=== PATIENT | female | born 1995 | race Caucasian/White ===

== ENCOUNTER → 2017-05-26 12:04 | Outpatient (CLI) | payer MEDICAID, SELFPAY | PROVIDERS: Family Provider Family Medicine; PCP Family Medicine; Visit Provider Family Medicine | DX: Z53.9 Procedure and treatment not carried out, unspecified reason (principal) ==

== ENCOUNTER → 2024-04-12 | Outpatient (CLI) | payer MEDICAID, SELFPAY | END | disposition home or self-care (01) | PROVIDERS: PCP Internal Medicine; Referring Provider Physician Assistant Surgical; Visit Provider Physician Assistant Surgical | DX: R30.0 Dysuria (principal) | CPT/HCPCS: 87077; 87086; 87088; 87186 ==

== ENCOUNTER 2024-11-13 00:28 | Emergency (ER) | payer MEDICAID, SELFPAY ==
[2024-11-13 00:30] VITALS: BP 151/91; PULSE 127; RESP 16; TEMP 38.1; O2SAT 97; BMI 35.7
[2024-11-13 00:32] VITALS: BP 151/91; PULSE 128; RESP 16; TEMP 38.1; O2SAT 96
--- NOTE | 2024-11-13 00:48 | EDS_ITS ---
HPI HPI - URI History of Present Illness Chief Complaint: Cold Sx Informant: patient Narrative Narrative: 29-year-old female states for the past 2 or 3 days she has had headaches, sore throat, some nasal congestion body aches just not feeling well. No cough or dyspnea. Some occasional nausea no vomiting or abdominal pain or diarrhea. No known sick contacts no travel out of the area or the country. She did a home COVID test but it was negative and she is not sure that she trusts it. ROS ROS ED Constitutional Constitutional ED: Reports body ache(s), fever(s) and malaise; Denies chills Eyes Eyes: Denies change in vision or diplopia ENT ENT ED: Reports nasal congestion and sore throat; Denies ear pain or rhinorrhea Cardiovascular Cardiovascular: Denies chest pain or palpitations Respiratory/Chest Respiratory/Chest: Denies cough or dyspnea Gastrointestinal Gastrointestinal: Reports nausea; Denies abdominal pain, diarrhea or vomiting Genitourinary Genitourinary ED: Denies dysuria or hematuria Musculoskeletal Musculoskeletal: Denies back pain or neck pain Integumentary Denies abscess or rash Neurologic Neurologic: Reports headache(s); Denies paresthesias or weakness Psychiatric Psychiatric: Denies anxiety or suicidal thoughts PFSH PFSH Medical History Bilateral lower extremity edema Morbid obesity Hypothyroidism Home Medications ?Medication ?Instructions ?Recorded ?Last Taken ?Type levothyroxine 100 mcg capsule PO 03/31/17 Unknown Hist ory ibuprofen 600 mg tablet 600 mg PO TID PRN fever or p ain 04/19/17 Unknown Rx #30 tabs Allergy/AdvReac Type Severity Reaction Status Date / Time No Known Allergies Allergy Verified 11/13/24 00:33 Family History Grandmother Diabetes Grandfather Heart disease Diabetes Social History Smoking Status: Never smoker alcohol intake: never substance use type: does not use what type of physical activity do you participate in: none EXAM Physical Exam Const Vital Signs: 11/13/24 00:30 11/13/24 00:32 Temperature 100.5 F H 100.5 F H Temperature Source Oral Oral Pulse Rate 127 H 128 H Respiratory Rate 16 16 Blood Pressure 151/91 H 151/91 H Blood Pressure Mean 111 111 Pulse Ox 97 96 Oxygen Delivery Method Room Air Room Air Positive well nourished, well developed and obese General Appearance ED: well developed and NAD Nutritional Appearance: obese HEENT Reports moist mucous membranes normocephalic and atraumatic Eyes PERRL and EOMs intact bilaterally Neck full ROM, no lymphadenopathy, supple and no meningeal signs Resp normal respiratory effort and clear to auscultation bilaterally Cardio regular rate, regular rhythm and no murmurs GI non-tender and non-distended Auscultation: normoactive bowel sounds Palpation: soft Back/Spine no CVA tenderness General Back: other FROM Extremity normal to inspection General Extremety ED: Negative for edema, pulses abnormal or tenderness General Extremity: Negative for edema or pulses abnormal Neuro oriented x3, CN's II-XII intact bilaterally and no sensory deficits noted Sensorium / Orientation: awake and alert Motor Exam: strength 5/5 throughout Skin no rashes or lesions noted and no wounds MDM MDM MDM Narrative Medical decision making narrative: Patient's COVID swab is positive for COVID. We treated her low-grade fever with ibuprofen. Her vital signs are otherwise unremarkable except for some tachycardia likely related to the fever. She is not dyspneic, her lungs are clear, pulse ox 97% on room air. Supportive care advised given appropriate discharge instructions. Discharge Plan Triage Chief Complaint: Cold Sx Other Complaint: Nausea/Vomiting ED Provider: Conner Nicholas Dx/Rx/DC Orders Clinical Impression: Upper respiratory tract infection due to COVID-19 virus Instructions: Coronavirus Disease 2019 (COVID-19): Caring for Yourself or Others Prescriptions: No Action levothyroxine 100 mcg capsule PO ibuprofen 600 mg tablet 600 mg PO TID PRN (Reason: fever or pain) Qty: 30 0RF Rx Instructions: take with food Primary Care Provider: Jarret Castellano Referrals: Froylan Fischer MD [Med Staff - Active Staff] - As Needed Activity Restrictions/Additional Instructions: Try to get a home portable pulse oximeter and closely watch your oxygen levels periodically. If you stay below 90% for more than a minute or so, and/or you are feeling like your breathing is getting worse, return to the emergency department for further evaluation. Currently, CDC recommendations state that you should stay home through day 5 of symptoms, then as long as symptoms are improving, if you need to go to work or somewhere else you may for days 6-10 as long as you are wearing a mask the entire time. If you are feeling better after day 10 you may resume life is normal. Print Language: [place] Disposition Disposition: Home, Self Care
--- OUTSIDE RECORDS SUMMARY | 2024-11-13 00:59 | XMS RPT_ITS | CCD ---
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 [employer] General Supervisor Name Role Phone Daniel Diaz Unavailable Unavailable Self Referral, Patient Unavailable Unavailab XAVIER Genao MD Admitting Unavailable XAVIER LOCKWOOD MD Primary Care Unavailable XAVIER LOCKWOOD MD Attending Unavailable TRES JACQUES MD Consulting Unavailable TRES JACQUES MD Referring Unavailable PROVIDER, UNKNOWN Consulting Unavailable PROVIDER, UNKNOWN Consulting Unavailable PROVIDER, UNKNOWN Consulting Unavailable TIFFANIE, DR KUSH Castellanos Admitting Unavailable TIFFANIE, DR KUSH Castellanos Primary Care Unavailable TIFFANIE, DR KUSH Castellanos Attending Unavailable TRES JACQUES MD Consulting Unavailable TRES JACQUES MD Referring Unavailable PROVIDER, UNKNOWN Consulting Unavailable PROVIDER, UNKNOWN Consulting Unavailable PROVIDER, UNKNOWN Consulting Unavailable DAI LEMUS MD Admitting Unavailable DAI LEMUS MD Primary Care Unavailable DAI LEMUS MD Attending Unavailable TRES JACQUES MD Consulting Unavailable PROVIDER, UNKNOWN Consulting Unavailable PROVIDER, UNKNOWN Consulting Unavailable PROVIDER, UNKNOWN Consulting Unavailable LISA TROY Attending Unavail able NO, PHYSICIAN Primary Care Unavailable Daniel Diaz Attending Unavailable No, Physician Unavailable Unavailable Debi VANESSA, Maritza Sheth Primary Care Provide r Nadya Mendez CNP Unavailable [phone] Denisse Lan CNP Unavailable [phone] Radha PIERCE, Mimi Justin Unavailable Unav ailable ANNETTE CARRERAO TYSHAWN Referring Unavail able DEBI, MARITZA TYSHAWN Primary Care Unavail able JOHNY PHAN Attending Unavailable DEBI, MARITZA TYSHAWN Primary Care Unavail able MAURIZIO CABALLERO Attending Unavailab le DEBI, MARITZA TYSHAWN Primary Care Unavail able ACE KESSLER Attending Unavailable DEBI, MARITZA TYSHAWN Primary Care Unavail able MARITZA CARRERA Attending Unavail able LEONARDOICARDSergio, MARITZA HARDENSTE Primary Care Unavail able LEONARDOICARDSergio, MARITZA HARDENSTE Attending Unavail able LEONARDOICARDSergio, MARITZA TYSHAWN Primary Care Unavail able LEONARDOICARDSergio, MARITZA TYSHAWN Primary Care Unavail able MARITZA CARRERA Attending Unavail able PHYSICIAN, NONE Primary Care Physician Unavailab Nazia VANESSA, MARITZA Mclean Primary Care Physician [phone] RL LEYVA Attending Unavailable PHYSICIAN, NONE Primary Care Unavailable MARLEN PERES DO Attending Unavailab acevedo PHYSICIAN, NONE Primary Care Unavailable MARLEN PERES DO Attending Unavailab acevedo PHYSICIAN, NONE Primary Care Unavailable DEBI VANESSA, MARITZA Mclean Primary Care Unavailab MARLEN Augustine DO Attending Unavailab Paulina VANESSA, Dr. Galeano Primary Care Provider Dr. Froylan Fischer MD Referring Provider Jos Cordova Attending Provider Oleghe, Efewongbe Referring Unavailable Chadd Hawley Attending Unavailable Oleghe, Efewongbe Primary Care Unavailable Oleghe, Efewongbe Referring Unavailable Oleghe, Efewongbe Primary Care Unavailable Chadd Hawley Attending Unavailable Oleghe, Efewongbe Primary Care Unavailable Chadd Hawley Attending Unavailable Chadd Hawley Referring Unavailable Oleghe, Efewongbe Primary Care Unavailable Chadd Hawley Attending Unavailable Oleghe, Efewongbe Referring Unavailable Oleghe, Efewongbe Primary Care Unavailable Jso Cordova Attending Unavailable Oleghe, Efewongbe Referring Unavailable Oleghe, Efewongbe Referring Unavailable Chadd Hawley Attending Unavailable Oleghe, Efewongbe Primary Care Unavailable Allergies Allergy Classification Reported Allergen(s) Allergy Type Date of Onset Reaction(s) Facility (1 source) No Known Medication Allergies; Translations: [No Known Medication Allergies] Propensity to adverse reactions to drug (disorder) [facility] Repository Medications Current Medications Medication Drug Class(es) Dates Sig (Normalized) Sig (Original) amLODIPine 5 mg / benazepril hydrochloride 10 mg oral capsule (1 source) Dihydropyridine Calcium Channel Molly, Angiotensin Converting Enzyme Inhibitor Start: 12-23-19 End: 06-19-19 take 1 capsule by mouth once daily amLODIPine-benazepril (LOTREL) 5-10 mg per capsule Indications: Essential (primary) hypertension Take 1 (one) capsule by mouth daily . 90 capsule 1 12/23/2023 06/18/2024 Discontinued (Side effects) Ethinyl Estradiol / norgestimate (3 sources) Progestin, Estrogen Start: 06-01-19 End: 05-31-19 24 take 1 tablet by mouth once daily norgestimate-ethinyl estradioL (Sprintec, 28,) 0.25-35 mg-mcg per tablet Take 1 (one) tablet by mouth daily . 30 tablet 11 05/31/2022 05/31/2023 Active hydroCHLOROthiazide 25 mg oral tablet (5 sources) Thiazide Diuretic Start: 10-07-19 End: 12-16-19 hydroCHLOROthiazide 25 mg oral tablet Dose : 25 mg = 1 tab(s), Oral, qDay, 0 Refill(s) Start Date: 09/06/24 Status: Ordered Repeat number: 1 ibuprofen 600 mg oral tablet (1 source) Nonsteroidal Anti-inflammatory Drug Start: 04-19-19 take 1 tablet by mouth three times daily at mealtime for pain Ibuprofen 600 mg tablet Active 600 mg PO THREE TIMES A DAY as needed for fever or pain 30 April 19, 2017 1:00am take with food levothyroxine sodium 0.1 mg oral capsule (2 sources) l-Thyroxine Start: 03-31-19 End: 03-31-19 18 Levothyroxine 100 mcg capsule Active PO March 31, 2017 1:00am ondansetron 4 mg disintegrating oral tablet (3 sources) Serotonin-3 Receptor Antagonist Start: 06-20-19 take 1 tablet by mouth every eight hours as needed for nausea ondansetron (ZOFRAN-ODT) 4 MG disintegrating tablet Dissolve 1 (one) tablet (4 mg total) on top of tongue every 8 (eight) hours as needed for nausea . 20 tablet 0 06/19/2022 Active progesterone 200 mg oral capsule (1 source) Progesterone Start: 09-07-19 progesterone 200 mg oral capsule Dose : 200 mg = 1 cap(s), Oral, qDay Start Date: 09/06/24 Status: Ordered Repeat number: 1 Completed/Discontinued Medications Medication Drug Class(es) Dates Sig (Normalized) Sig (Original) cephalexin 500 mg oral capsule (1 source) Cephalosporin Antibacterial Start: 04-13-2023 End: 10-07-2023 take 1 capsule by mouth twice daily cephALEXin (KEFLEX) 500 MG capsule Take 1 (one) capsule (500 mg total) by mouth 2 (two) times a day . 10 capsule 04/13/2023 10/07/2023 Discontinued (Therapy completed) escitalopram 10 mg oral tablet (4 sources) Serotonin Reuptake Inhibitor Start: 08-13-2022 End: 10-07-2023 take 1 tablet by mouth once daily escitalopram oxalate (LEXAPRO) 10 MG tablet Indications: Generalized anxiety disorder Take 1 (one) tablet (10 mg total) by mouth daily . 30 tablet 1 08/13/2022 10/07/2023 Discontinued (Therapy completed) Ethinyl Estradiol / Norethindrone (1 source) Estrogen Start: 03-23-2023 End: 10-07-2023 take 1 tablet by mouth once daily norethindrone ac-eth estradioL (Loestrin 1.5/30, 21,) 1.5-30 mg-mcg Tab Take 1 (one) tablet by mouth daily . 28 tablet 5 03/23/2023 10/07/2023 Discontinued (Therapy completed) ketorolac tromethamine 10 mg oral tablet (2 sources) Nonsteroidal Anti-inflammatory Drug, Cyclooxygenase Inhibitor Start: 08-29-2023 End: 10-07-2023 take 1 tablet by mouth three times daily as needed for pain ketorolac (TORADOL) 10 mg tablet Take 1 (one) tablet (10 mg total) by mouth 3 (three) times a day as needed for pain . 15 tablet 08/29/2023 10/07/2023 Discontinued (Therapy completed) Start: 05-19-2022 take 1 tablet by angela th three times daily as needed for pain ketorolac (TORADOL) 10 mg tablet Take 1 (one) tablet (10 mg total) by mouth 3 (three) times a day as needed for pain . 15 tablet 0 05/19/2022 Active meclizine hydrochloride 25 mg oral tablet (1 source) Antiemetic Start: 08-29-2023 End: 10-07-2023 take 1 tablet by mouth three times daily as needed for nausea meclizine (ANTIVERT) 25 mg tablet Take 1 (one) tablet (25 mg total) by mouth 3 (three) times a day as needed for nausea . 30 tablet 08/29/2023 10/07/2023 Discontinued (Therapy completed) 1 ml medroxyPROGESTERone acetate 150 mg/ml injection (4 sources) Progestin Start: 07-05-2022 End: 10-07-2023 medroxyPROGESTERone (DEPO-PROVERA) 150 mg/mL injection Indications: control counseling Inject 1 mL (150 mg total) into the shoulder, thigh, or buttocks every 3 (three) months . 1 mL 3 07/05/2022 10/07/2023 Discontinued (Therapy completed) nitrofurantoin, macrocrystals 25 mg / nitrofurantoin, monohydrate 75 mg oral capsule (1 source) Nitrofuran Antibacterial Start: 04-12-2024 End: 04-19-2024 take 1 capsule by mouth every twelve hours at mealtime Nitrofurantoin Monohyd/M-Cryst 100 mg capsule Discontinued 1 NMA PO Q12H 14 7 0 April 12, 2024 1:00am April 18, 2024 1:00am April 19, 2024 1:09am administer with a meal/food; swallow whole; do not open, crush, dissolve , or chew Problems Active Problems Problem Classification Problem Date Documented Da te Episodic/Chronic Anxiety disorders (5 sources) Generalized anxiety disorder; Translations: [Generalized anxiety disorder] Onset: 09-10-2022 09-10-2022 Chronic Chronic obstructive pulmonary disease and bronchiectasis (2 sources) Bronchitis, not specified as acute or chronic; Translations: [Bronchitis, not specified as acute or chronic] Onset: 03-14-2022 Episodic Deficiency and other anemia (1 source) Iron deficiency anemia due to blood loss; Translations: [Iron deficiency anemia secondary to blood loss (chronic)] 10-07-2023 Chronic Deficiency and other anemia (4 sources) Iron deficiency anemia secondary to blood loss (chronic); Translations: [Iron deficiency anemia secondary to blood loss (chronic)] Onset: 10-07-2023 Chronic Essential hypertension (7 sources) Essential hypertension; Translations: [Essential (primary) hypertension] Onset: 04-01-2017 10-07-2023 Chronic Headache; including migraine (2 sources) Headache; including migraine; Translations: [Headache, unspecified] Onset: 08-29-2023 Mood disorders (3 sources) Major depressive disorder, recurrent, moderate; Translations: [Major depressive disorder, recurrent, moderate] Onset: 12-25-2021 Chronic Other circulatory disease (2 sources) Elevated blood-pressure reading, without diagnosis of hypertension; Translations: [Elevated blood-pressure reading, without diagnosis of hypertension] Onset: 03-14-2022 Episodic Other endocrine disorders (3 sources) Polycystic ovary syndrome; Translations: [Polycystic ovarian syndrome] Onset: 09-15-2018 12-14-2022 Chronic Other female genital disorders (1 source) Abnormal uterine bleeding; Translations: [Abnormal uterine and vaginal bleeding, unspecified] 10-07-2023 Chronic Other female genital disorders (2 sources) Abnormal uterine and vaginal bleeding, unspecified; Translations: [Abnormal uterine and vaginal bleeding, unspecified] Onset: 10-07-2023 Chronic Other nutritional; endocrine; and metabolic disorders (2 sources) Body mass index 40+ - severely obese; Translations: [Morbid (severe) obesity due to excess calories] Onset: 12-23-2023 12-23-2023 Chronic Other nutritional; endocrine; and metabolic disorders (2 sources) Morbid (severe) obesity due to excess calories; Translations: [Morbid (severe) obesity due to excess calories] Onset: 12-23-2023 Chronic Other nutritional; endocrine; and metabolic disorders (1 source) Morbid obesity; Translations: [Morbid (severe) obesity due to excess calories] 03-31-2017 Chronic Other upper respiratory infections (1 source) Acute pharyngitis, unspecified; Translations: [Acute pharyngitis, unspecified] Onset: 10-29-2024 Episodic Residual codes; unclassified (1 source) Bilateral lower limb edema; Translations: [Localized edema] 03-31-2017 Episodic Sprains and strains (2 sources) Sprain of ligaments of lumbar spine, initial encounter; Translations: [Sprain of ligaments of lumbar spine, initial encounter] Onset: 04-26-2024 Episodic Thyroid disorders (1 source) Hypothyroidism; Translations: [Hypothyroidism, unspecified] 03-31-2017 Chronic Unclassified (1 source) Contact with and (suspected) exposure to covid-19; Translations: [Contact with and (suspected) exposure to covid-19] Onset: 03-14-2022 Viral infection (2 sources) Viral infection, unspecified; Translations: [Viral infection, unspecified] Onset: 03-14-2022 Episodic Past or Other Problems Problem Classification Problem Date Documented Date Episodic/Chronic Abdominal pain (3 sources) Indigestion; Translations: [Epigastric pain] Onset: 10-07-2023 10-07-2023 Episodic Allergic reactions (8 sources) Environmental allergy; Translations: [Other allergy status, other than to drugs and biological substances] Onset: 05-29-2022 Episodic Conditions associated with dizziness or vertigo (2 sources) Dizziness and giddiness; Translations: [Dizziness and giddiness] Onset: 08-29-2023 Episodic Genitourinary symptoms and ill-defined conditions (1 source) Dysuria; Translations: [Dysuria] Onset: 05-07-2024 Episodic Mood disorders (4 sources) Mood disorders Onset: 06-18-2024 06-18-2024 Pneumonia (except that caused by tuberculosis or sexually transmitted disease) (4 sources) Pneumonia, unspecified organism; Translations: [Pneumonia, unspecified organism] Onset: 12-19-2023 Episodic Unclassified (1 source) Contact with and (suspected) exposure to covid-19; Translations: [Contact with and (suspected) exposure to covid-19] Onset: 03-14-2022 Urinary tract infections (1 source) Urinary tract infection, site not specified; Translations: [Urinary tract infection, site not specified] Onset: 04-19-2024 Episodic Results Test Name Value Interpretation Reference Range Facility Urgent Care Visit Reporton 0 10-29-2024 Urgent Care Visit Report [facility] [address], [address] [place], [place] [address] OFFICE VISIT Date of Service: 10/29/24 MR#: [id number] Acct: [id number] Name: RACHAEL POPE Rep #: [id number] : 1995 Provider: RINA Edwards Age/Sex: 29/F Location: [facility] [place] [place] Status: Signed Intake Vital Signs 04/19/17 15:32 10/29/24 08:23 Height 5 ft 6 in 5 ft 6 in Weight: 333 lb BMI 53.7 BP 122/76 H Position Sitting Respiration 18 Pulse 95 Temp 99.8 F H Temp Source Oral Pulse Oximetry (%) 98 Oxygen Delivery Method room air Intake Visit Reasons: SORE THROAT, EAR PAIN Chief Complaint: sore throat, ear pain Accompanied by: Daughter Allergies No Known Allergies Allergy (Verified 10/29/24 08:17) Medications ???Medication ???Instructions ???Recorded ???Confirmed ???Type levothyroxine 100 mcg capsule PO 03/31/17 10/29/24 History ibuprofen 600 mg tablet 600 mg PO TID PRN fever or pain 10/29/24 Rx #30 tabs Nurse's Note: Patient has a ST and bilateral ear pain. Patient states this has been going on for 4 days. Patient states it was just her right ear now its both. PFSH Medical History (Updated 03/31/17 @ 10:06 by Pavithra Yanez) Bilateral lower extremity edema Morbid obesity Hypothyroidism Family History (Updated 03/31/17 @ 10:07 by Pavithra Yanez) Grandmother Diabetes Grandfather Heart disease Diabetes Social History (Updated 04/19/17 @ 18:56 by Ace Butcher NP, [employer]ACHINE OPERATOR-C) Smoking Status: Never smoker alcohol intake: never substance use type: does not use what type of physical activity do you participate in: none HPI HPI Chief Complaint: sore throat, ear pain Details: RACHAEL POPE, is a 29 F who presents to the office today for initial evaluation at the [facility] for approximately 4-day history of persistent sore throat with swollen tender cervical lymph nodes in front of neck, no cough, no fever, developed bilateral ear pressure. Painful swallowing appreciated though no difficulty swallowing/drooling. No rash. No complaints of chest pressure/shortness of breath/dyspnea on exertion. No close contacts with similar complaints. ???No [id number] products taken to assist. No other associated symptoms and no other alleviating/aggravati ng factors. ROS Const Constitutional: No other (As above) Exam Const General: cooperative, healthy appearing and no acute distress Orientation: alert, awake HENMT Head: normal to inspection Ears: hearing grossly normal bilaterally, external ears normal, TM's normal bilaterally and EAC's normal Nose: external nose normal, nares normal, septum normal and no nasal discharge Face and sinus: normal facial exam, sinuses nontender and face symmetric Mouth: oral mucosae normal, lip normal, tongue normal and oropharynx normal Throat: posterior oropharynx normal, uvula midline, abnormal tonsil bilaterally trace erythema w/ no exudates and no hypertrophy, and no postnasal drainage Eyes General: appearance normal, both eyes and all related structures Neck Neck: normal visual inspection, full ROM, no meningeal signs, supple and lymphadenopathy (Bilateral anterior cervical lymph node swelling/tender to palpation) Neck mass: No Thyroid: thyroid normal Chest Chest palpation inspection: normal inspection of the chest Resp Effort Inspection: normal respiratory effort and able to speak in complete sentences Auscultation: Bilateral: Clear to Auscultation Cardio Palpation: normal PMI Rate: regular rate Rhythm: regular rhythm Heart Sounds: S1 normal, S2 normal, no gallops, no murmurs and no rubs Pulses: radial pulses present Skin General: no rashes or lesions noted Neuro General: patient alert, patient awake and patient oriented x3 Cognition: normal cognition Speech: speech normal Psych Appearance: grossly normal Mental Status: mental status grossly normal Mood: congruent mood Affect: normal affect Speech and Movement: speech and movement normal Attitude: cooperative Diagnoses Acute pharyngitis J02.9 Assessment and Plan Assessment and Plan (1) Acute pharyngitis: Status: Acute Plan: See POC results. Supportive measures as instructed today. Work excuse offered/declined. Follow-up with PCP in 3 to 5 days should symptoms not improve, sooner should symptoms worsen or any other concerns develop. Patient states acknowledging understanding all the above. Results POC Rapid Strep A Office Rapid Strep A Negative Last Edit by Grecia Pitts MA on 10/29/24 08:23 Coding Level of Care Code Off vis,est,level 2 Assessment and Plan Assessment and Plan Orders: Orders POC Rapid Strep A Today J02.9 - Acute pharyngitis, unspecified 10/29/24 0856 Date Darion (more content not included)... Normal [facility] .Auto Diffon 07-30-2024 Basophil, Absolute 0.1 10 3/mcL Normal 0.0-0.3 [facility] Comment on above: Performed By: #### A CHASE, FT4, ADIFF, FT3, CBC, TSH #### [address] [address] Basophils/100 WBC (Bld) 0.6 % Normal 0.0-2.5 [facility] Comment on above: Performed By: #### A CHASE, FT4, ADIFF, FT3, CBC, TSH #### [address] [address] Eosinophil, Absolute 0.3 10 3/mcL Normal 0.0-0.7 [facility] Comment on above: Performed By: #### A CHASE, FT4, ADIFF, FT3, CBC, TSH #### [address] [address] Eosinophils/100 WBC (Bld) 2.4 % Normal 0.0-6.0 [facility] Comment on above: Performed By: #### A CHASE, FT4, ADIFF, FT3, CBC, TSH #### [address] [address] Lymphocyte, Absolute 2.8 10 3/mcL Normal 0.9-4.3 [facility] Comment on above: Performed By: #### A CHASE, FT4, ADIFF, FT3, CBC, TSH #### [address] [address] Lymphocytes/100 WBC (Bld) 24.1 % Normal 20.0-40.0 [facility] Comment on above: Performed By: #### A CHASE, FT4, ADIFF, FT3, CBC, TSH #### [address] [address] Monocyte, Absolute 0.8 10 3/mcL Normal 0.1-1.4 [facility] Comment on above: Performed By: #### A CHASE, FT4, ADIFF, FT3, CBC, TSH #### [address] [address] Monocytes/100 WBC (Bld) 6.9 % Normal 2.0-13.0 [facility] Comment on above: Performed By: #### A CHASE, FT4, ADIFF, FT3, CBC, TSH #### [place] [address] Neutrophils/100 WBC (Bld) 66.0 % Normal 50.0-75.0 [facility] Comment on above: Performed By: #### A CHASE, FT4, ADIFF, FT3, CBC, TSH #### [place] [address] .NEUABSon 07-30-2024 Neutrophil, Absolute 7.8 10 3/mcL Normal 2.3-8.1 [facility] Comment on above: Performed By: #### A CHASE, FT4, ADIFF, FT3, CBC, TSH #### [place] [address] CBCon 07-30-2024 Erythrocyte distribution width (RBC) [Ratio] 14.4 % Normal 11.5-15.5 [facility] Comment on above: Performed By: #### A CHASE, FT4, ADIFF, FT3, CBC, TSH #### [place] [address] Hematocrit (Bld) [Volume fraction] 39.0 % Normal 34.0-46.0 [facility] Comment on above: Performed By: #### A CHASE, FT4, ADIFF, FT3, CBC, TSH #### [place] [address] Hgb 12.8 G/dL Normal 12.0-16.0 [facility] Comment on above: Performed By: #### A CHASE, FT4, ADIFF, FT3, CBC, TSH #### [place] [address] MCH (RBC) [Entitic mass] 25.1 pg Low 27.0-33.0 [facility] Comment on above: Performed By: #### A CHASE, FT4, ADIFF, FT3, CBC, TSH #### [address] [address] MCHC 32.9 G/dL Normal 32.0-36.0 [facility] Comment on above: Performed By: #### A CHASE, FT4, ADIFF, FT3, CBC, TSH #### [address] [address] MCV (RBC) [Entitic vol] 76.5 fL Low 80.0-99.0 [facility] Comment on above: Performed By: #### A CHASE, FT4, ADIFF, FT3, CBC, TSH #### [address] [address] Platelet 294 10 3/mcL Normal 150-450 [facility] Comment on above: Performed By: #### A CHASE, FT4, ADIFF, FT3, CBC, TSH #### [address] [address] Platelet mean volume (Bld) [Entitic vol] 8.7 fL Normal 6.6-10.5 [facility] Comment on above: Performed By: #### A CHASE, FT4, ADIFF, FT3, CBC, TSH #### [address] [address] RBC 5.10 10 6/mcL Normal 4.10-5.30 [facility] Comment on above: Performed By: #### A CHASE, FT4, ADIFF, FT3, CBC, TSH #### [address] [address] WBC 11.8 10 3/mcL High 4.5-10.8 [facility] Comment on above: Performed By: #### A CHASE, FT4, ADIFF, FT3, CBC, TSH #### [address] [address] FT3on 07-30-2024 Free T3 [Mass/Vol] 3.76 pg/mL Normal 2.30-4.00 [facility] Comment on above: Performed By: #### A CHASE, FT4, ADIFF, FT3, CBC, TSH #### [address] [place] [id number] [place], [place] [address] FT4on 07-30-2024 Free T4 [Mass/Vol] 1.11 ng/dL Normal 0.76-1.46 [facility] Comment on above: Performed By: #### A CHASE, FT4, ADIFF, FT3, CBC, TSH #### [address] [place] [id number] [place], [place] [address] LABORATORYOrdered By: SYSTEM SYSTEM on 07-30-2024 Basophils (Bld) [#/Vol] 0.1 103/mcL Normal 0.0 - 0.3 10^3/mcL AO Workflow SS Basophils/100 WBC (Bld) 0.6 % Normal 0.0 - 2.5 % AO Workflow SS Eosinophil, Absolute 0.3 103/mcL Normal 0.0 - 0 .7 10^3/mcL AO Workflow SS Eosinophils/100 WBC (Bld) 2.4 % Normal 0.0 - 6.0 % AO Workflow SS Erythrocyte distribution width (RBC) [Ratio] 14.4 % Normal 11.5 - 15.5 % AO Workflow SS Free T3 [Mass/Vol] 3.76 pg/mL Normal 2.30 - 4. 00 pg/mL AO ADM SS Free T4 [Mass/Vol] 1.11 ng/dL Normal 0.76 - 1. 46 ng/dL AO ADM SS Hematocrit (Bld) [Volume fraction] 39.0 % Normal 34.0 - 46.0 % AO Workflow SS Hemoglobin (Bld) [Mass/Vol] 12.8 G/dL Normal 12.0 - 16.0 G/dL AO Workflow SS Lymphocytes (Bld) [#/Vol] 2.8 103/mcL Normal 0.9 - 4.3 10^3/mcL AO Workflow SS Lymphocytes/100 WBC (Bld) 24.1 % Normal 20.0 - 40.0 % AO Workflow SS MCH (RBC) [Entitic mass] 25.1 pg Low 27.0 - 33.0 pg AO Workflow SS MCHC 32.9 G/dL Normal 32.0 - 36.0 G/dL AO Workflow SS MCV (RBC) [Entitic vol] 76.5 fL Low 80.0 - 99.0 fL AO Workflow SS Monocytes (Bld) [#/Vol] 0.8 103/mcL Normal 0.1 - 1.4 10^3/mcL AO Workflow SS Monocytes/100 WBC (Bld) 6.9 % Normal 2.0 - 13.0 % AO Workflow SS Neutrophils (Bld) [#/Vol] 7.8 103/mcL Normal 2.3 - 8.1 10^3/mcL AO Workflow SS Neutrophils/100 WBC (Bld) 66.0 % Normal 50.0 - 75.0 % AO Workflow SS Platelet mean volume (Bld) [Entitic vol] 8.7 fL Normal 6.6 - 10.5 fL AO Workflow SS Platelets (Bld) [#/Vol] 294 103/mcL Normal 150 - 450 10^3/mcL AO Workflow SS RBC (Bld) [#/Vol] 5.10 106/mcL Normal 4.10 - 5.3 0 10^6/mcL AO Workflow SS TSH Qn 5.75 m[IU]/L High 0.36 - 3.74 mcIU/mL AO ADM SS WBC (Bld) [#/Vol] 11.8 103/mcL High 4.5 - 10.8 10^3/mcL AO Workflow SS TSHon 07-30-2024 TSH Qn 5.75 m[IU]/L High 0.36-3.74 [facility] Comment on above: Performed By: #### A CHASE, FT4, ADIFF, FT3, CBC, TSH #### [address] [address] [place] PELVIS NON-OB W/TRANSVAGI NALon 07-10-2024 US PELVIS NON-OB W/TRANSVAGINAL ORIGINAL EXAMINATION: TRANSVAGINAL PELVIC ULTRASOUND 07/10/2024 TECHNIQUE: Transvaginal pelvic ultrasound was performed. COMPARISON: None HISTORY: ORDERING SYSTEM PROVIDED HISTORY: Reason for Exam: PELVIC AND PERINEAL PAIN All images are recorded and archived. FINDINGS: Measurements: Uterus: 7.3 x 4.3 x 4.7 cm Endometrial stripe: 5.0 mm Right Ovary:3.0 x 3.0 x 1.8 cm Left Ovary: 2.8 x 2.3 x 2.7 cm Ultrasound Findings: Uterus: Uterus demonstrates normal myometrial echotexture. Endometrial stripe: Endometrial stripe is within normal limits. Right Ovary: Right ovary is within normal limits. Left Ovary: Left ovary is within normal limits. Free Fluid: No evidence of free fluid. IMPRESSION: Unremarkable pelvic ultrasound. Interpreted by: Fernandez Reed DO Preliminary Report By: Fernandez Reed DO Electronically signed By Fernandez Reed DO Dictated Date: 07/10/2024 8:52:34 AM Prelim Date: 07/10/2024 8:55:59 AM Sign Date: 07/10/2024 8:55:59 AM Ordering Provider: RL LEYVA [facility] BASIC METABOLIC PANEL WITH A TRICE ARAUJOon 06-19-2024 BUN/CREATININE RATIO SEE NOTE: Normal - [facility] Comment on above: Order Comment: FASTI NG:YES FASTING: YES Result Comment: Not Reported: BUN and Creatinine are within reference range. Performed By: #### [id number] #### [facility] [address], [address] [place] [address] Manager Product Design: Maverick Gomez MD Calcium [Mass/Vol] 9.2 mg/dL Normal 8.6-10.2 [facility] Comment on above: Order Comment: FASTI NG:YES FASTING: YES Performed By: #### [id number] #### [facility] [place] [address] Manager Product Design: Maverick Gomez MD Chloride [Moles/Vol] 104 mmol/L Normal 98-110 [facility] Comment on above: Order Comment: FASTI NG:YES FASTING: YES Performed By: #### 9 [id number] #### [facility] [place] [address] Manager Product Design: Maverick Gomez MD CO2 [Moles/Vol] 23 mmol/L Normal 20-32 [facility] Comment on above: Order Comment: FASTI NG:YES FASTING: YES Performed By: #### 9 [id number] #### [facility] [place] [address] Manager Product Design: Maverick Gomez MD Creatinine [Mass/Vol] 0.64 mg/dL Normal 0.50-0.[address] [facility] Comment on above: Order Comment: FASTI NG:YES FASTING: YES Performed By: #### 9 2098 #### [facility] [place] [address] Manager Product Design: Maverick Gomez MD ELECTROLYTE BALANCE 12 mmol/L (calc) Normal 7-17 [facility] Comment on above: Order Comment: FASTI NG:YES FASTING: YES Performed By: #### 9 2008 #### [facility] [place] [address] Manager Product Design: Maverick Gomez MD GFR/1.73 sq M.predicted among non-blacks MDRD (S/P/Bld) [Vol rate/Area] 123 mL/min/{1.73_m2} Normal > OR = 60 [facility] Comment on above: Order Comment: FASTI NG:YES FASTING: YES Performed By: #### 9 0518 #### [facility] [place] [address] Manager Product Design: Maverick Gomez MD Glucose [Mass/Vol] 98 mg/dL Normal 65-99 [facility] Comment on above: Order Comment: FASTI NG:YES FASTING: YES Result Comment: Fasting reference interval Performed By: #### 9 [id number] #### [facility] [place] [address] Manager Product Design: Maverick Gomez MD Potassium [Moles/Vol] 3.9 mmol/L Normal 3.5-5.3 [facility] Comment on above: Order Comment: FASTI NG:YES FASTING: YES Performed By: #### 9 6438 #### [facility] [place] [address] Manager Product Design: Maverick Gomez MD Sodium [Moles/Vol] 139 mmol/L Normal 135-146 [facility] Comment on above: Order Comment: FASTI NG:YES FASTING: YES Performed By: #### 9 5844 #### [facility] [place] [address] Manager Product Design: Maverick Gomez MD Urea nitrogen [Mass/Vol] 12 mg/dL Normal 7-25 [facility] Comment on above: Order Comment: FASTI NG:YES FASTING: YES Performed By: #### 9 2498 #### [facility] [address] [facility], [address] [place] [address] Manager Product Design: Maverick Gomez MD CT LUMBAR SPINE WITHOUT CONT Ursula 04-26-2024 CT LUMBAR SPINE WITHOUT CONTRAST EXAMINATION: CT LUMBAR SPINE WITHOUT CONTRAST HISTORY: ORDERING SYSTEM PROVIDED HISTORY: Compression fracture, lumbar, TECHNOLOGIST PROVIDED HISTORY: Injury/Trauma Reason for exam: Compression fracture, lumbar Encounter Type: Initial Mechanism of injury: fall ORDERING SYSTEM PROVIDED DIAGNOSIS CODES: COMPARISON: None TECHNIQUE: CT examination of the lumbar spine without IV contrast. Coronal and sagittal reformations were performed. Dose reduction techniques were achieved by using automated exposure control and/or adjustment of mA and/or kV according to patient size and/or use of iterative reconstruction technique. FINDINGS: 5 rnp-wqx-hlmpogz lumbar vertebrae. Normal lumbar lordosis without listhesis. The vertebral body heights are maintained. No acute displaced fracture is evident. Mild multilevel degenerative disease and facet arthropathy is present throughout the lumbar spine. Broad-based disc bulge/posterior disc osteophyte complex at the L1-L2 level results in mild spinal canal stenosis. Broad-based disc bulge at the L3-L4 level with posterior disc osteophyte complex results in ermu-of-jpbmeogy spinal canal stenosis. No focal large central disc herniation or severe spinal canal stenosis. Abpi-qi-kpxxnzve bilateral neural foraminal stenosis is present throughout the lumbar spine, most significant involving the left L5-S1 foramen. The bony pelvis appears congruent with mild joint space narrowing of the sacroiliac joints. Limited evaluation of the abdominopelvic viscera is without acute or suspicious abnormality. IMPRESSION: Degenerative changes without acute osseous abnormality. Workstation ID: [id number] Dictated by: KATY COURTNEY on TueApr 26, 2024 1:46:45 PM EST Transcribed by: KATY COURTNEY on TueApr 26, 2024 1:46:45 PM EST Finalized by: KATY COURTNEY on TueApr 26, 2024 1:46:45 PM EST [facility] Comment on above: Order Comment: [facility] has implemented the eGFR calculation approach that does not have a coefficient for race that conforms to the NKF-ASN Task Force Recommendations. ED Prov Noteon 04-26-2024 ED Prov Note ED PROVIDER NOTE [facility] EMERGENCY DEPARTMENT NAME: Rachael Pope AGE: 28 y.o. : 1995 VISIT DATE: 04/26/2024 CSN: [id number] PCP: Maritza Carrera MD Chief Complaint Patient presents with Back Pain Chief complaint back pain History of present illness a 28-year-old female slipped forward and developed lumbosacral pain a couple days ago and then today slipped and fell but did not impact the lower back but has discomfort there. Denies any loss of bowel or bladder function or urinary fecal incontinence or constipation or retention or any numbness or tingling in the legs or any foot drop. She is here with blood pressure 190/100 pulse 98 respiratory rate 18 temp 98 pulse ox 1% Past Medical History: Diagnosis Date Anxiety Depression History reviewed. No pertinent surgical history. Family History Problem Relation Age of Onset No Known Problems Mother Alcohol abuse Father COPD Father Diabetes Maternal Grandmother Diabetes Paternal Grandmother Social History Socioeconomic History Marital status: Tobacco Use Smoking status: Every Day Types: Cigarettes Smokeless tobacco: Never Vaping Use Vaping status: Every Day Substances: Nicotine Devices: Pre-filled or refillable cartridge Substance and Sexual Activity Alcohol use: Not Currently Comment: occasional Drug use: Not Currently Sexual activity: Yes Partners: Male Social Drivers of Health Financial Resource Strain: Low Risk (09/28/2023) Overall Financial Resource Strain (CARDIA) Difficulty of Paying Living Expenses: Not very hard Food Insecurity: No Food Insecurity (09/28/2023) Hunger Vital Sign Worried About Running Out of Food in the Last Year: Never true Ran Out of Food in the Last Year: Never true Transportation Needs: No Transportation Needs (09/28/2023) PRAPARE - Transportation Lack of Transportation (Medical): No Lack of Transportation (Non-Medical): No Previous Medications Medication Sig amLODIPine-benazepril (LOTREL) 5-10 mg per capsule Take 1 (one) capsule by mouth daily . hydroCHLOROthiazide (HYDRODIURIL) 25 MG tablet Take 1 (one) tablet (25 mg total) by mouth daily . No Known Allergies Review of Systems All other systems reviewed and are negative. Patient Vitals for the past 24 hrs: BP Temp Pulse Resp SpO2 Height Weight 04/26/24 1203 (!) 191/101 98.3 degrees F (36.8 degrees C) 98 18 97 % 5' 4 136.1 kg (300 lb) Physical Exam Vitals and nursing note reviewed. Exam conducted with a account assistant present. Constitutional: General: She is in acute distress. Appearance: She is normal weight. HENT: Head: Normocephalic and atraumatic. Nose: Nose normal. Eyes: Extraocular Movements: Extraocular movements intact. Pupils: Pupils are equal, round, and reactive to light. Cardiovascular: Rate and Rhythm: Normal rate and regular rhythm. Musculoskeletal: Comments: Lumbosacral spasm L5-S1 bilaterally. No CVA tenderness motor function 5 out of 5 reflex +2+4 in lower extremities bilaterally sensation intact Pulmonary: Effort: Pulmonary effort is normal. Abdominal: General: Abdomen is flat. Neurological: Mental Status: She is alert. Laboratory & Radiographic Imaging (if done): Results for orders placed or performed during the hospital encounter of 04/26/24 POC Urinalysis Dipstick, Auto Result Value Ref Range Spec Grav, UA 1.020 1.005 - 1.025 pH, UA 5.5 5.0 - 7.0 Protein, UA Trace (A) Negative mg/dL Glucose, UA Negative Negative mg/dL Ketones, UA Negative Negative mg/dL Bilirubin, UA Small (A) Negative Urobilinogen, UA 0.2 <2.0 mg/dL Blood, UA Negative Negative Nitrite, UA Negative Negative Leukocyte Esterase, UA Small (A) Negative POC , Urine Result Value Ref Range POC Preg Test, Urine Negative Negative CT Lumbar Spine Without Contrast Final Result Degenerative changes without acute osseous abnormality. Workstation ID: [id number] Procedures Medical Decision Making Differential diagnosis considered #1 lumbosacral sprain #2 lumbosacral fracture #3 sciatica #4 cauda equina syndrome Considering the above differential diagnosis following tests and treatments were considered in order with shared decision making CT lumbar spine Toradol shot Amount and/or Complexity of Data Reviewed Radiology: ordered and independent interpretation performed. Details: CT negative for fracture . Clinical Impression: 1. Lumbar sprain, initial encounter ED Disposition ED Disposition Discharge Condition Stable Comment Rachael Pope discharged to home/self care in stable condition. Follow-up Information 1. Maritza Carrera MD. Specialty: Family Medicine [address] [address] Contact information for after-discharge care Follow-up information has not been specified. New Prescriptions ketorolac (TORADOL) 10 mg tablet Take 1 (one) ta (more content not included)... Normal [facility] Beta HCG ( test) Ql (U) Negative Normal Negative [facility] Comment on above: Order Comment: Negat gabo: Dilute urine specimens, as indicated by a low specific gravity (<1.010) may not contain representitive levels of hCG. If is still suspected, a serum test or repeat urine test using a first morning urine specimen should be considered. POC URINALYSIS DIPSTICK,AUTO - RALSon 04-26-2024 POC BILIRUBIN, URINE Small Abnormal Negative [facility] POC BLOOD, URINE Negative Normal Negative [facility] POC GLUCOSE, URINE Negative Normal Negative [facility] POC KETONES, URINE Negative Normal Negative [facility] POC LEUKOCYTE ESTERASE, URINE Small Abnormal Negative [facility] POC NITRITE, URINE Negative Normal Negative [facility] POC PH, URINE 5.5 Normal 5.0-7.0 [facility] POC PROTEIN, URINE Trace Abnormal Negative [facility] POC SPECIFIC GRAVITY 1.020 Normal 1.005-1.025 [facility] POC UROBILINOGEN 0.2 mg/dL Normal < 2.0 [facility] Office Visit Reporton 2024 Office Visit Report [facility] [address] 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 Chief Complaint: dysuria, low back pain Allergies No Known Allergies Allergy (Verified 04/12/24 13:39) Office Procedures [facility] Billing Sheet Testing [facility] Non-DOT (yearly plus drug testing fee): Yes 04/20/24 0849 Date Chadd Victoria Signature: Date (if applicable) CC: Normal [facility] Urine Cultureon 04-14-2024 [facility] Escherichia coli [place] Count 25,000-50,000 Escherichia coli: REACTION Ampicillin Islt CHRISTY 8 Ampicillin+Sulbac Islt CHRISTY 4 S Cefepime Islt CHRISTY <=0.12 S cefTRIAXone Islt CHRISTY <=0.25 S Ciprofloxacin Islt CHRISTY <=0.06 S B-Lactamase Extended Susc Islt NEG Gentamicin Islt CHRISTY <=1 S levoFLOXacin Islt CHRISTY <=0.12 S Meropenem Islt CHRISTY <=0.25 S Nitrofurantoin Islt CHRISTY <=16 S Pip+Tazo Islt CHRISTY <=4 S TMP SMX Islt CHRISTY <=20 S Normal [facility] Comment on above: Performed By: #### M [id number] #### [facility] [address] [place], [address] Urgent Care Visit Reporton 0 04-12-2024 Urgent Care Visit Report [facility] [address], [address] [place], [place] [address] OFFICE VISIT Date of Service: 04/12/24 MR#: [id number] Acct: [id number] Name: RACHAEL POPE Rep #: [id number] : 1995 Provider: RINA Almazan Age/Sex: 28/F Location: [facility] Status: Signed Intake Vital Signs 04/19/17 15:32 04/12/24 13:39 Height 5 ft 6 in BP 132/74 H Blood Pressure Location Lt brachial Position Sitting Respiration 16 Pulse 73 Pulse Source NIBP Temp 98.6 F Temp Source Oral Pulse Oximetry (%) 96 Oxygen Delivery Method room air Intake Visit Reasons: Urinary tract infection Chief Complaint: dysuria, low back pain Enterostomal Therapy Nurse Required: No Is patient in pain?: Yes Allergies No Known Allergies Allergy (Verified 04/12/24 13:39) Is last menstrual period known: No Post menopausal: No Patient : No Have you fallen in the past year?: No Nurse's Note: dysuria, low back pain x 2 weeks concern for UTI PFSH Medical History (Updated 03/31/17 @ 10:06 by Pavithra Yanez) Bilateral lower extremity edema Morbid obesity Hypothyroidism Family History (Updated 03/31/17 @ 10:07 by Pavithra Yanez) Grandmother Diabetes Grandfather Heart disease Diabetes Social History (Updated 04/19/17 @ 18:56 by Ace Butcher NP, [employer]OTH [employer] 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 Patient denies fever, chills, sweats. No nausea, vomiting or diarrhea. No pelvic or abdominal pain. No loss of bowel or bladder control. No other associated symptoms or alleviating/aggravati ng factors. ROS Const Constitutional: No other (6 system ROS completed with pertinent findings in the HPI otherwise normal.) Exam Const General: cooperative and healthy appearing Resp Effort Inspection: normal respiratory effort Auscultation: Bilateral: Clear to Auscultation Cardio Rate: regular rate Rhythm: regular rhythm GI Auscultation: normal bowel sounds General: No CVA tenderness Psych Appearance: grossly normal Mental Status: mental status grossly normal Coding Level of Care Code Off vis,new,level 3 Diagnoses Urinary tract infection N39.0 Assessment and Plan Assessment and Plan (1) Urinary tract infection: Plan: Macrobid as prescribed today. Encouraged to get plenty of rest, drink lots of clear liquids, and use Tylenol or Ibuprofen (unless contraindicated) for fever and comfort. Patient also educated on other symptomatic management techniques. To be seen in 7-10 days if no improvement; sooner if worsening of symptoms. Patient advised of potential red flags and when appropriate to report to the ED. Patient verbalized understanding and agreement with all the above. Orders: Orders POC Urinalysis Dip (Clinic) Today R30.0 - Dysuria POC Urine Today R30.0 - Dysuria Culture, Urine Today R30.0 - Dysuria Medications: New nitrofurantoin monohyd/m-cryst 100 mg administer with a meal/food; swallow whole; do not open, crush, dissolve , or chew 1 cap PO Q12H 7 days 14 caps 0RF Clinical Quality Measures Falls Risk Screening/Assistive Devices Have you fallen in the past year?: No 04/12/24 1354 Date Chadd Victoria Signature: Date (if applicable) CC: Normal [facility] Office Visit Reporton 2023 Office Visit Report [facility] [address] [place] [address] OFFICE VISIT Date of Service: 02/02/24 MR#: [id number] Acct: [id number] Patient: RACHAEL POPE Rep #: [id number] : 1995 Provider: RINA Almazan Age/Sex: 28/F Location[place] [facility] [place] Status: Signed Intake Vital Signs 04/19/17 15:32 Height 5 ft 6 in Intake Visit Reasons: PE NON DOT 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 This test has not been approved for use in asymptomatic patients and its performance in this patient population has not been evaluated. Negative results do not rule out the presence of SARS-CoV-2/COVID-19. ED Prov Noteon 12-19-2023 ED Prov Note [facility] ED Physician Note: NAME: Rachael Pope 28 y.o. CSN: [id number] PCP: Maritza Carrera MD ED Course / Medical Decision Making: Patient's heart rate was elevated. I did start IV fluids. Recheck temperature and she did have a fever. Patient was given Tylenol. White count is up to 11.40.. Patient does not appear septic or bacteremic. COVID, flu test, rapid strep are negative. Patient has no signs of peritonsillar abscess. Chest x-ray shows left lower lobe pneumonia. test is reported by nursing as negative but did not crossover. Patient placed on Levaquin. Patient to follow-up with primary doctor if worsening symptoms come back to the ER. Patient is comfortable at home understands discharge and follow-up instructions Medical Decision Making Amount and/or Complexity of Data Reviewed Independent Historian: Details: Patient gave history Labs: Details: Reviewed Clinical Impression: 1. Community acquired pneumonia, unspecified laterality Disposition: Patient is being discharged to home New Prescriptions levoFLOXacin (LEVAQUIN) 750 MG tablet Take 1 (one) tablet (750 mg total) by mouth daily for 7 days . History: Chief Complaint: No chief complaint on file. HPI: The history was obtained from the patient. She is a 28 y.o. female who presents with a chief complaint of No chief complaint on file.. HPI patient comes in with a cough for 6 days with nausea. She was exposed to pneumonia. She denies but has not had a period in several months she just got off Depo-Provera. She has had unprotected intercourse. She does have a sore throat with runny nose. PMHx: Past Medical History: Diagnosis Date Anxiety Depression PMSx: History reviewed. No pertinent surgical history. FAM. Hx: Family History Problem Relation Age of Onset No Known Problems Mother Alcohol abuse Father COPD Father Diabetes Maternal Grandmother Diabetes Paternal Grandmother SOC. Hx: Social History Socioeconomic History Marital status: Tobacco Use Smoking status: Every Day Types: Cigarettes Smokeless tobacco: Never Vaping Use Vaping status: Every Day Substances: Nicotine Devices: Pre-filled or refillable cartridge Substance and Sexual Activity Alcohol use: Not Currently Comment: occasional Drug use: Not Currently Sexual activity: Yes Partners: Male Social Determinants of Health Financial Resource Strain: Low Risk (09/28/2023) Overall Financial Resource Strain (CARDIA) Difficulty of Paying Living Expenses: Not very hard Food Insecurity: No Food Insecurity (09/28/2023) Hunger Vital Sign Worried About Running Out of Food in the Last Year: Never true Ran Out of Food in the Last Year: Never true Transportation Needs: No Transportation Needs (09/28/2023) PRAPARE - Transportation Lack of Transportation (Medical): No Lack of Transportation (Non-Medical): No MEDs: Previous Medications Medication Sig hydroCHLOROthiazide (HYDRODIURIL) 25 MG tablet Take 1 (one) tablet (25 mg total) by mouth daily . ALL: No Known Allergies ROS: Review of Systems Constitutional: Positive for fatigue and fever. Negative for activity change, appetite change, chills, diaphoresis and unexpected weight change. HENT: Positive for congestion, rhinorrhea and sore throat. Negative for dental problem, drooling, ear discharge, ear pain, facial swelling, hearing loss, mouth sores, nosebleeds, postnasal drip, sinus pressure, sinus pain, sneezing, tinnitus, trouble swallowing and voice change. Eyes: Negative. Respiratory: Positive for cough. Negative for apnea, choking, chest tightness, shortness of breath, wheezing and stridor. Cardiovascular: Negative. Gastrointestinal: Positive for nausea. Negative for abdominal distention, abdominal pain, anal bleeding, blood in stool, constipation, diarrhea, rectal pain and vomiting. Endocrine: Negative. Genitourinary: Negative. Musculoskeletal: Negative. Neurological: Negative. Hematological: Negative. Positives and pertinent negatives as per HPI. All other systems were reviewed and are negative. Physical Exam: Patient Vitals for the past 24 hrs: BP Temp Temp src Pulse Resp SpO2 Height Weight 12/19/23 0900 (!) 132/93 -- -- (!) 114 -- 95 % -- -- 12/19/23 0845 -- -- -- (!) 110 -- 95 % -- -- 12/19/23 0831 (!) 144/92 (!) 101.5 degrees F (38.6 degrees C) Oral (!) 131 (!) 20 96 % -- -- 12/19/23 0822 -- -- -- (!) 122 -- 98 % -- -- 12/19/23 0753 (!) 150/92 97.3 degrees F (36.3 degrees C) Temporal (!) 125 18 95 % 5' 4 136.1 kg (300 lb) Physical Exam Constitutional: Appearance: She is not diaphoretic. HENT: Right Ear: External ear normal. Left Ear: External ear normal. Nose: Rhinorrhea present. Mouth/Throat: Pharynx: No oropharyngeal exudate or posterior oropharyngeal erythema. Cardiovascular: Rate and Rhythm: Regular rhythm. Tachycardia present. Heart sounds: Normal heart sound (more content not included)... Normal [facility] POC BASIC METABOLIC PANEL - [facility] 12-19-2023 Chloride [Moles/Vol] 104 mmol/L Normal 98-108 [facility] Comment on above: Order Comment: [facility] has implemented the eGFR calculation approach that does not have a coefficient for race that conforms to the NKF-ASN Task Force Recommendations. CO2 [Moles/Vol] 20 mmol/L Low 21-32 [facility] Comment on above: Order Comment: [facility] has implemented the eGFR calculation approach that does not have a coefficient for race that conforms to the NKF-ASN Task Force Recommendations. Creatinine [Mass/Vol] 0.64 mg/dL Normal 0.40-1.10 [facility] Comment on above: Order Comment: [facility] has implemented the eGFR calculation approach that does not have a coefficient for race that conforms to the NKF-ASN Task Force Recommendations. Glucose [Mass/Vol] 120 mg/dL High 65-99 [facility] Comment on above: Order Comment: [facility] has implemented the eGFR calculation approach that does not have a coefficient for race that conforms to the NKF-ASN Task Force Recommendations. POC GFR 124 mL/min/1.73 m2 Normal >=60 [facility] Comment on above: Order Comment: [facility] has implemented the eGFR calculation approach that does not have a coefficient for race that conforms to the NKF-ASN Task Force Recommendations. Result Comment: Lanny mated GFR was calculated using the 2020 CKD-EPI creatinine equation. POC IONIZED CALCIUM 4.7 mg/dL Normal 4.5-5.3 [facility] Comment on above: Order Comment: [facility] has implemented the eGFR calculation approach that does not have a coefficient for race that conforms to the NKF-ASN Task Force Recommendations. Potassium [Moles/Vol] 3.9 mmol/L Normal 3.5-5.1 [facility] Comment on above: Order Comment: [facility] has implemented the eGFR calculation approach that does not have a coefficient for race that conforms to the NKF-ASN Task Force Recommendations. Sodium [Moles/Vol] 139 mmol/L Normal 135-145 [facility] Comment on above: Order Comment: [facility] has implemented the eGFR calculation approach that does not have a coefficient for race that conforms to the NKF-ASN Task Force Recommendations. Urea nitrogen [Mass/Vol] 4 mg/dL Low 8-25 [facility] Comment on above: Order Comment: [facility] has implemented the eGFR calculation approach that does not have a coefficient for race that conforms to the NKF-ASN Task Force Recommendations. POC CBC AND DIFFERENTIALon 0 12-19-2023 BASOPHILS ABSOLUTE COUNT 0.03 K/mcL Normal 0.00-0.30 [facility] Basophils/100 WBC (Bld) 0.3 % Normal [facility] Eosinophils (Bld) [#/Vol] 0.19 10*3/uL Normal 0.00-0.50 [facility] Eosinophils/100 WBC (Bld) 1.7 % Normal [facility] Erythrocyte distribution width (RBC) [Ratio] 14.4 % Normal 11.6-14.8 [facility] Hematocrit (Bld) [Volume fraction] 45.5 % Normal 36.0-46.0 [facility] Hemoglobin (Bld) [Mass/Vol] 14.5 g/dL Normal 12.0-16.0 [facility] IG ABSOLUTE 0.03 K/mcL Normal 0.00-0.30 [facility] IG PERCENT 0.30 % Normal [facility] Comment on above: Result Comment: The IG parameter is the percentage of metamyelocytes, myelocytes and promyelocytes. An immature granulocyte count (IG) of 1% or more suggests the possibility of infection, an IG count of 3% is very likely related to an infection. Lymphocytes (Bld) [#/Vol] 1.80 10*3/uL Normal 0.90-4.00 [facility] Lymphocytes/100 WBC (Bld) 15.8 % Normal [facility] MCH (RBC) [Entitic mass] 24.2 pg Low 26.0-34.0 [facility] MCV (RBC) [Entitic vol] 76.0 fL Low 80.0-100.0 [facility] MEAN CORPUSCULAR HEMOGLOBIN CONC 31.9 g/dL Normal 31.0-37.0 [facility] Monocytes (Bld) [#/Vol] 0.91 10*3/uL High 0.30-0.90 [facility] Monocytes/100 WBC (Bld) 8.0 % Normal [facility] NEUTROPHILS ABSOLUTE COUNT 8.44 K/mcL High 1.70-7.00 [facility] Neutrophils/100 WBC (Bld) 73.9 % Normal [facility] Platelet mean volume (Bld) [Entitic vol] 9.6 fL Normal 9.4-12.4 [facility] Platelets (Bld) [#/Vol] 331 10*3/uL Normal 150-400 [facility] RBC (Bld) [#/Vol] 5.99 10*6/uL High 4.00-5.20 [facility] WBC (Bld) [#/Vol] 11.40 10*3/uL High 4.50-11.00 [facility] POC INFLUENZA A/B - RALSon 0 12-19-2023 POC INFLUENZA A (FSED) Not detected Normal Not Detected [facility] POC INFLUENZA B (FSED) Not detected Normal Not Detected [facility] POC , URINE - RALSo n 12-19-2023 Beta HCG ( test) Ql (U) Negative Normal Negative [facility] Comment on above: Order Comment: Negat gabo: Dilute urine specimens, as indicated by a low specific gravity (<1.010) may not contain representitive levels of hCG. If is still suspected, a serum test or repeat urine test using a first morning urine specimen should be considered. POC STREP A - MOLECULAR RALS on 12-19-2023 POC STREP A SCREEN Negative Normal Negative [facility] XR CHEST PA/APon 12-19-2023 XR CHEST PA/AP EXAMINATION: XR CHEST PA/AP 12/19/2023 8:36 am HISTORY: ORDERING SYSTEM PROVIDED HISTORY: cough, TECHNOLOGIST PROVIDED HISTORY: Illness/Other Reason for exam: chest pain cough and sob off and on for over a week now, concerned for pneumonia Cancer History: n Surgery, RadiationHistory: n Encounter Type: Initial Additional signs and symptoms: na ORDERING SYSTEM PROVIDED DIAGNOSIS CODES: COMPARISON: None. FINDINGS: Normal cardiomediastinal contours. Normal pulmonary vasculature. Left lower lung airspace opacities. Clear right lung. No pleural effusion or pneumothorax. No acute osseous abnormality. IMPRESSION: Left lower lung pneumonia. Workstation ID: [id number] Dictated by: AUREA CASTILLO on TueDec 19, 2023 8:43:31 AM EDT Transcribed by: AUREA CASTILLO on TueDec 19, 2023 8:43:31 AM EDT Finalized by: AUREA CASTILLO on TueDec 19, 2023 8:43:31 AM EDT [facility] Comment on above: Order Comment: Await preg test Injury/Trauma or Illness?:Illness/Other How long have you had these symptoms (acute/chronic)?:Acute Reason for exam?:chest pain cough and sob off and on for over a week now, concerned for pneumonia History of cancer?:n Surgeries, chemotherapy, or radiation?:n Type of Exam?:Initial Additional signs and symptoms?:na BASIC METABOLIC PANELon 09-18 Anion gap [Moles/Vol] 17 mmol/L Normal 10-20 [facility] Comment on above: Order Comment: [facility] has implemented the eGFR calculation approach that does not have a coefficient for race that conforms to the NKF-ASN Task Force Recommendations. Performed By: #### [id number] #### [facility] [address] [place], [place] [address] Fred Elizalde M.D. [id number] Calcium [Mass/Vol] 9.2 mg/dL Normal 8.4-10.2 [facility] Comment on above: Order Comment: [facility] has implemented the eGFR calculation approach that does not have a coefficient for race that conforms to the NKF-ASN Task Force Recommendations. Performed By: #### 4 [id number] #### LAB [address] [place] [address] Fred Elizalde M.D. [id number] Chloride [Moles/Vol] 104 mmol/L Normal 98-108 [facility] Comment on above: Order Comment: [facility] has implemented the eGFR calculation approach that does not have a coefficient for race that conforms to the NKF-ASN Task Force Recommendations. Performed By: #### 4 [id number] #### LAB [address] [place] [address] Fred Elizalde M.D. [id number] Creatinine [Mass/Vol] 0.77 mg/dL Normal 0.40-1.10 [facility] Comment on above: Order Comment: [facility] has implemented the eGFR calculation approach that does not have a coefficient for race that conforms to the NKF-ASN Task Force Recommendations. Performed By: #### 4 [id number] #### LAB [address] [place] [address] Fred Elizalde M.D. [id number] EGFR 108 mL/min/1.73 m2 Normal >=60 [facility] Comment on above: Order Comment: [facility] has implemented the eGFR calculation approach that does not have a coefficient for race that conforms to the NKF-ASN Task Force Recommendations. Result Comment: Lanny mated GFR was calculated using the 2020 CKD-EPI creatinine equation. Performed By: #### 4 [id number] #### LAB [address] [place] [address] Fred Elizalde M.D. [id number] Glucose [Mass/Vol] 106 mg/dL High 65-99 [facility] Comment on above: Order Comment: [facility] has implemented the eGFR calculation approach that does not have a coefficient for race that conforms to the NKF-ASN Task Force Recommendations. Performed By: #### 4 [id number] #### LAB [address] [place] [address] Fred Elizalde M.D. [id number] HCO3 (Bld) [Moles/Vol] 22 mmol/L Normal 21-32 [facility] Comment on above: Order Comment: [facility] has implemented the eGFR calculation approach that does not have a coefficient for race that conforms to the NKF-ASN Task Force Recommendations. Performed By: #### 4 [id number] #### LAB [address] [place] [address] Fred Elizalde M.D. [id number] Potassium [Moles/Vol] 4.2 mmol/L Normal 3.5-5.1 [facility] Comment on above: Order Comment: [facility] has implemented the eGFR calculation approach that does not have a coefficient for race that conforms to the NKF-ASN Task Force Recommendations. Performed By: #### 4 [id number] #### LAB [address] [place] [address] Fred Elizalde M.D. [id number] Sodium [Moles/Vol] 139 mmol/L Normal 135-145 [facility] Comment on above: Order Comment: [facility] has implemented the eGFR calculation approach that does not have a coefficient for race that conforms to the NKF-ASN Task Force Recommendations. Performed By: #### 4 [id number] #### LAB [address] [place] [address] Fred Elizalde M.D. [id number] Urea nitrogen [Mass/Vol] 12 mg/dL Normal 8-25 [facility] Comment on above: Order Comment: [facility] has implemented the eGFR calculation approach that does not have a coefficient for race that conforms to the NKF-ASN Task Force Recommendations. Performed By: #### 4 [id number] #### LAB [address] [place] [address] Fred Elizalde M.D. [id number] Urea nitrogen/Creatinine [Mass ratio] 15.6 mg/mg Normal 10.0-20.0 [facility] Comment on above: Order Comment: [facility] has implemented the eGFR calculation approach that does not have a coefficient for race that conforms to the NKF-ASN Task Force Recommendations. Performed By: #### 4 [id number] #### [facility] [address] [place], [place] [address] Fred Elizalde M.D. [id number] Basic metabolic 2000 panelon 10-07-2023 Anion gap [Moles/Vol] 17 mmol/L 10 - 2 0 mmol/L [facility] Calcium [Mass/Vol] 9.2 mg/dL 8.4 - 10. 2 mg/dL [facility] Chloride [Moles/Vol] 104 mmol/L 98 - 10 8 mmol/L [facility] Creatinine [Mass/Vol] 0.77 mg/dL 0.40 - 1.10 mg/dL [facility] GFR/1.73 sq M.predicted CKD-EPI (S/P/Bld) [Vol rate/Area] 108 - PINF [facility] Comment on above: Estimated GFR was ca lculated using the 2020 CKD-EPI creatinine equation. Glucose [Mass/Vol] 106 mg/dL High 65 - 99 mg/dL [facility] HCO3 [Moles/Vol] 22 mmol/L 21 - 32 mmol/L [facility] Potassium [Moles/Vol] 4.2 mmol/L 3.5 - 5.1 mmol/L [facility] Sodium [Moles/Vol] 139 mmol/L 135 - 145 mmol/L [facility] Urea nitrogen [Mass/Vol] 12 mg/dL 8 - 25 mg/dL [facility] Urea nitrogen/Creatinine [Mass ratio] 15.6 mg/mg 10.0 - 20.0 [facility] has implemented the eGFR calculation approach that does not have a coefficient for race that conforms to the NKF-ASN Task Force Recommendations. [facility] CBC WITH AUTO DIFFERENTIALon 10-07-2023 AUTO NRBC 0.0 % Normal [facility] Comment on above: Performed By: #### L [id number] #### [facility] [address] [place], [place] [address] Fred Elizalde M.D. [id number] AUTO NRBC ABS COUNT 0.00 K/mcL Normal 0.00-0.00 [facility] Comment on above: Performed By: #### L [id number] #### LAB [address] [place] [address] Fred Elizalde M.D. [id number] BASOPHILS ABSOLUTE COUNT 0.06 K/mcL Normal 0.00-0.30 [facility] Comment on above: Performed By: #### L [id number] #### LAB [address] [place] [address] Fred Elizalde M.D. [id number] Basophils/100 WBC (Bld) 0.6 % Normal [facility] Comment on above: Performed By: #### L [id number] #### LAB [address] [place] [address] Fred Elizalde M.D. [id number] Eosinophils (Bld) [#/Vol] 0.23 10*3/uL Normal 0.00-0.50 [facility] Comment on above: Performed By: #### L [id number] #### LAB [address] [place] [address] Fred Elizalde M.D. [id number] Eosinophils/100 WBC (Bld) 2.5 % Normal [facility] Comment on above: Performed By: #### L [id number] #### LAB [address] [place] [address] Fred Elizalde M.D. [id number] Erythrocyte distribution width (RBC) [Ratio] 15.3 % High 11.6-14.8 [facility] Comment on above: Performed By: #### L [id number] #### LAB [address] [place] [address] Fred Elizalde M.D. [id number] Hematocrit (Bld) [Volume fraction] 43.5 % Normal 36.0-46.0 [facility] Comment on above: Performed By: #### L [id number] #### LAB [address] [place] [address] Fred Elizalde M.D. [id number] Hemoglobin (Bld) [Mass/Vol] 13.4 g/dL Normal 12.0-16.0 [facility] Comment on above: Performed By: #### L [id number] #### LAB [address] [place] [address] Fred Elizalde M.D. [id number] IG ABSOLUTE 0.04 K/mcL Normal 0.00-0.30 [facility] Comment on above: Performed By: #### L [id number] #### LAB [address] [place] [address] Fred Elizalde M.D. [id number] IG PERCENT 0.40 % Normal [facility] Comment on above: Result Comment: The IG parameter is the percentage of metamyelocytes, myelocytes and promyelocytes. An immature granulocyte count (IG) of 1% or more suggests the possibility of infection, an IG count of 3% is very likely related to an infection. Performed By: #### L [id number] #### LAB [address] [place] [address] Fred Elizalde M.D. [id number] Lymphocytes (Bld) [#/Vol] 2.28 10*3/uL Normal 0.90-4.00 [facility] Comment on above: Performed By: #### L [id number] #### LAB [address] [place] [address] Fred Elizalde M.D. [id number] Lymphocytes/100 WBC (Bld) 24.4 % Normal [facility] Comment on above: Performed By: #### L [id number] #### LAB [address] [place] [address] Fred Elizalde M.D. [id number] MCH (RBC) [Entitic mass] 23.3 pg Low 26.0-34.0 [facility] Comment on above: Performed By: #### L [id number] #### LAB [address] [place] [address] Fred Elizalde M.D. [id number] MCV (RBC) [Entitic vol] 75.5 fL Low 80.0-100.0 [facility] Comment on above: Performed By: #### L [id number] #### LAB [address] [place] [address] Fred Elizalde M.D. [id number] MEAN CORPUSCULAR HEMOGLOBIN CONC 30.8 g/dL Low 31.0-37.0 [facility] Comment on above: Performed By: #### L [id number] #### LAB [address] [place] [address] Fred Elizalde M.D. [id number] Monocytes (Bld) [#/Vol] 0.61 10*3/uL Normal 0.30-0.90 [facility] Comment on above: Performed By: #### L [id number] #### LAB [address] [place] [address] Fred Elizalde M.D. [id number] Monocytes/100 WBC (Bld) 6.5 % Normal [facility] Comment on above: Performed By: #### L [id number] #### LAB [address] [place] [address] Fred Elizalde M.D. [id number] NEUTROPHILS ABSOLUTE COUNT 6.14 K/mcL Normal 1.70-7.00 [facility] Comment on above: Performed By: #### L [id number] #### LAB [address] [place] [address] Fred Elizalde M.D. [id number] Neutrophils/100 WBC (Bld) 65.6 % Normal [facility] Comment on above: Performed By: #### L [id number] #### LAB [address] [place] [address] Fred Elizalde M.D. [id number] Platelet mean volume (Bld) [Entitic vol] 10.1 fL Normal 9.4-12.4 [facility] Comment on above: Performed By: #### L [id number] #### LAB [address] [place] [address] Fred Elizalde M.D. [id number] Platelets (Bld) [#/Vol] 349 10*3/uL Normal 150-400 [facility] Comment on above: Performed By: #### L [id number] #### [facility] [address] [place] [id number] Fred Elizalde M.D. [id number] RBC (Bld) [#/Vol] 5.76 10*6/uL High 4.00-5.20 [facility] Comment on above: Performed By: #### L [id number] #### [facility] [address] [place] [address] Fred Elizalde M.D. [id number] WBC (Bld) [#/Vol] 9.36 10*3/uL Normal 4.50-11.00 [facility] Comment on above: Performed By: #### L [id number] #### [facility] [address] [place] [address] Fred Elizalde M.D. [id number] HEMOGLOBIN A1Con 10-07-2023 Glucose [Mass/Vol] 114 mg/dL Normal 74-114 [facility] Comment on above: Performed By: #### 4 [id number] #### [facility] [address] [place] [address] Fred Elizalde M.D. [id number] HbA1c (Bld) [Mass fraction] 5.6 % Normal 4.2-5.6 [facility] Comment on above: Performed By: #### 4 [id number] #### [facility] [address] [place] [address] Fred Elizalde M.D. [id number] HEPATIC FUNCTION PANELon Albumin [Mass/Vol] 4.1 g/dL Normal 3.2-5.2 [facility] Comment on above: Performed By: #### 4 [id number] #### [facility] [address] [place] [id number] Fred Elizalde M.D. [id number] ALP [Catalytic activity/Vol] 101 U/L Normal 40-140 [facility] Comment on above: Performed By: #### 4 5866 #### [facility] [address] [place] [address] Fred Elizalde M.D. [id number] ALT [Catalytic activity/Vol] 54 U/L High 0-35 U/L [facility] Comment on above: Performed By: #### 4 5866 #### LAB [address] [place] [address] Fred Elizalde M.D. [id number] AST [Catalytic activity/Vol] 40 U/L High 0-35 U/L [facility] Comment on above: Performed By: #### 4 5866 #### [facility] [address] [place] [address] Fred Elizalde M.D. [id number] Bilirubin [Mass/Vol] 0.4 mg/dL Normal 0.0-1.3 [facility] Comment on above: Performed By: #### 4 5866 #### LAB [address] [place] [address] Fred Elizalde M.D. [id number] BILIRUBIN, DIRECT < Normal 0.0-0.4 [facility] Comment on above: Performed By: #### 4 5866 #### LAB [address] [place] [address] Fred Elizalde M.D. [id number] Protein [Mass/Vol] 7.3 g/dL Normal 6.0-8.0 [facility] Comment on above: Performed By: #### 4 5866 #### LAB [address] [place] [address] Fred Elizalde M.D. [id number] HbA1c (Bld) [Mass fraction]o n 10-07-2023 Average glucose Estimated from glycated hemoglobin (Bld) [Mass/Vol] 114 mg/dL 74 - 114 mg/dL [facility] Interpretation and review of laboratory results Normal [facility] Hemoglobin A1con 10-07-2023 HbA1c (Bld) [Mass fraction] 5.6 % 4.2 - 5.6 % [facility] Hepatic function 2000 panelO rdered By: Sarah Carnes on 10-07-2023 Albumin [Mass/Vol] 4.1 g/dL 3.2 - 5.2 g/dL [facility] ALP [Catalytic activity/Vol] 101 U/L 40 - 140 U/L [facility] ALT [Catalytic activity/Vol] 54 U/L High 0-35 U/L [facility] AST [Catalytic activity/Vol] 40 U/L High 0-35 U/L [facility] Bilirubin [Mass/Vol] 0.4 mg/dL 0.0 - 1 .3 mg/dL [facility] Bilirubin.conjugated [Mass/Vol] mg/dL 0.0 - 0.4 mg/dL [facility] Interpretation and review of laboratory results Abnormal [facility] Protein [Mass/Vol] 7.3 g/dL 6.0 - 8.0 g/dL [facility] IRON AND TIBCon 10-07-2023 Iron [Mass/Vol] 38 ug/dL Normal 30-160 [facility] Comment on above: Performed By: #### 4 6910 #### LAB [address] [place] [address] Fred Elizalde M.D. [id number] IRON SATURATION 10 % Low 20-50 [facility] Comment on above: Performed By: #### 4 6910 #### [facility] [address] [place] [address] Fred Elizalde M.D. [id number] TIBC (CALCULATED) 378 mcg/dL Normal 225-430 [facility] Comment on above: Performed By: #### 4 6910 #### LAB [address] [place] [address] Fred Elizalde M.D. [id number] Iron and Iron binding capaci ty panelon 10-07-2023 Iron [Mass/Vol] 38 ug/dL [facility] Iron binding capacity [Mass/Vol] 378 [facility] Iron saturation [Mass fraction] 10 % Low 20 - 50 % [facility] LIPID PANELon 10-07-2023 Cholesterol [Mass/Vol] 131 mg/dL Normal 100-199 [facility] Comment on above: Result Comment: Abby onal Cholesterol Education Program Guidelines: Cholesterol Desirable: <200 mg/dL Borderline High: 200-239 mg/dL High: greater than or equal to 240 mg/dL Performed By: #### 4 6087 #### LAB [address] [place] [address] Fred Elizalde M.D. [id number] Cholesterol in HDL [Mass/Vol] 35 mg/dL Low 40-59 [facility] Comment on above: Result Comment: [facility] Cholesterol Education Program Guidelines: HDL Cholesterol Low: <40 mg/dL Near Optimal: 40-59 mg/dL High: greater than or equal to 60 mg/dL Performed By: #### 4 6087 #### LAB [address] [place] [address] Fred Elizadle M.D. [id number] Cholesterol.total/Cho lesterol in HDL [Mass ratio] 3.7 {ratio} Normal [facility] Comment on above: Result Comment: Fema le Cholesterol/HDL Ratio: Average risk: 4.4 1/2 average risk: 3.3 2 x average risk: 7.1 Performed By: #### 4 6087 #### LAB [address] [place] [address] Fred Elizalde M.D. [id number] LDL CHOLESTEROL CALCULATED 81 mg/dL Normal 10-130 [facility] Comment on above: Result Comment: [employer] Cholesterol Education Program Guidelines: LDL Cholesterol Optimal: <100 mg/dL Near Optimal/above Optimal: 100-129 mg/dL Borderline High: 130-159 mg/dL High: 160-189 mg/dL Very High: greater than or equal to 190 mg/dL Performed By: #### 4 6087 #### LAB [address] [place] [address] Fred Elizalde M.D. [id number] NON HDL CHOL 96 mg/dL Normal [facility] Comment on above: Result Comment: [employer] Cholesterol Education Program Guidelines: NON HDL Cholesterol Desirable: <130 mg/dL Borderline High: 130-159 mg/dL High: 160-189 mg/dL Very High: > or = 190 mg/dL Performed By: #### 4 6099 #### LAB [address] [place] [address] Fred Elizalde M.D. [id number] Triglyceride [Mass/Vol] 75 mg/dL Normal 30-150 [facility] Comment on above: Result Comment: [facility] onal Cholesterol Education Program Guidelines: Triglyceride Normal: <150 mg/dL Borderline High: 150-199 mg/dL High: 200-499 mg/dL Very High: greater than or equal to 500 mg/dL Performed By: #### 4 6087 #### [facility] [address] [place] [address] Fred Elizalde M.D. [id number] Lipid 1996 panelon 4 Cholesterol [Mass/Vol] 131 mg/dL 100 - 199 mg/dL [facility] Comment on above: National Cholesterol Education Program Guidelines: Cholesterol Desirable: <200 mg/dL Borderline High: 200-239 mg/dL High: greater than or equal to 240 mg/dL Cholesterol in HDL [Mass/Vol] 35 mg/dL Low 40 - 59 mg/dL [facility] Comment on above: National Cholesterol Education Program Guidelines: HDL Cholesterol Low: <40 mg/dL Near Optimal: 40-59 mg/dL High: greater than or equal to 60 mg/dL Cholesterol in LDL [Mass/Vol] 81 mg/dL 10 - 130 mg/dL [facility] Comment on above: National Cholesterol Education Program Guidelines: LDL Cholesterol Optimal: <100 mg/dL Near Optimal/above Optimal: 100-129 mg/dL Borderline High: 130-159 mg/dL High: 160-189 mg/dL Very High: greater than or equal to 190 mg/dL Cholesterol non HDL [Mass/Vol] 96 mg/dL [facility] Comment on above: National Cholesterol Education Program Guidelines: NON HDL Cholesterol Desirable: <130 mg/dL Borderline High: 130-159 mg/dL High: 160-189 mg/dL Very High: > or = 190 mg/dL Cholesterol.total/Cho lesterol in HDL [Mass ratio] 3.7 {ratio} ratio [facility] Comment on above: Female Cholesterol/H DL Ratio: Average risk: 4.4 1/2 average risk: 3.3 2 x average risk: 7.1 Triglyceride [Mass/Vol] 75 mg/dL 30 - 150 mg/dL [facility] Comment on above: National Cholesterol Education Program Guidelines: Triglyceride Normal: <150 mg/dL Borderline High: 150-199 mg/dL High: 200-499 mg/dL Very High: greater than or equal to 500 mg/dL No Panel Informationon 10-06 Interpretation and review of laboratory results Abnormal [facility] TSHon 10-07-2023 TSH Qn 3.19 m[IU]/L Normal 0.27-4.20 [facility] Comment on above: Performed By: #### 4 [id number] #### [address] [place], [place] [address] Fred Elizalde M.D. [id number] TSH DL <= 0.005 mIU/L Qnon 0 10-07-2023 Interpretation and review of laboratory results Normal [facility] TSH Qn 3.19 m[IU]/L [facility] ED Prov Noteon 08-29-2023 ED Prov Note HPI: 08/29/2023, Time: @NOWNR@ Rachael Toshia is a 27 y.o. female presenting to the ED for gradual onset of lightheadedness and occasionally vertigo and also moderate diffuse headache specially frontal region, beginning for 1 day ago. The complaint has been constant, moderate in severity, and worsened by changing position. No fever chills or night sweats or chest pain or difficulty breathing or palpitations or cough and no abdominal pain vomiting or diarrhea but does complain of intermittent chronic constipation. No black or bloody stools and does have history of anemia from menorrhagia ROS: Pertinent positives and negatives are stated within HPI, all other systems reviewed and are negative. --- PAST HISTORY --- Past Medical History: @[facility] Past Surgical History: has no past surgical history on file. Social History: reports that she has been smoking cigarettes. She has never used smokeless tobacco. She reports that she does not currently use alcohol. She reports that she does not currently use drugs. Family History: family history includes Alcohol abuse in her father; COPD in her father; Diabetes in her maternal grandmother and paternal grandmother; No Known Problems in her mother. The patient's home medications have been reviewed. Allergies: Patient has no known allergies. -------- RESULTS ------- All laboratory and radiology results have been personally reviewed by myself LABS: Results for orders placed or performed during the hospital encounter of 08/29/23 POC CBC and Differential Result Value Ref Range WBC 10.18 4.50 - 11.00 K/mcL RBC 5.77 (H) 4.00 - 5.20 M/mcL Hemoglobin 13.3 12.0 - 16.0 g/dL Hematocrit 43.1 36.0 - 46.0 % MCV 74.7 (L) 80.0 - 100.0 fL MCH 23.1 (L) 26.0 - 34.0 pg MCHC 30.9 (L) 31.0 - 37.0 g/dL RDW - CV 14.6 11.6 - 14.8 % Platelets 372 150 - 400 K/mcL MPV 9.6 9.4 - 12.4 fL Neutrophils 64.9 % Lymphocytes 25.8 % Monocytes 5.9 % Eosinophils 2.9 % Basophils 0.3 % IG Percent 0.20 % Neutrophils Abs 6.60 1.70 - 7.00 K/mcL Lymphocytes Abs 2.63 0.90 - 4.00 K/mcL Monocytes Abs 0.60 0.30 - 0.90 K/mcL Eosinophils Abs 0.30 0.00 - 0.50 K/mcL Basophils Abs 0.03 0.00 - 0.30 K/mcL IG Absolute 0.02 0.00 - 0.30 K/mcL POC Basic Metabolic Panel Result Value Ref Range Glucose 110 (H) 65 - 99 mg/dL BUN 14 8 - 25 mg/dL Creatinine 0.84 0.40 - 1.10 mg/dL GFR 98 >=60 mL/min/1.73 m2 Sodium 143 135 - 145 mmol/L Potassium 4.0 3.5 - 5.1 mmol/L Chloride 108 98 - 108 mmol/L TCO2 22 21 - 32 mmol/L Ionized Calcium 4.8 4.5 - 5.3 mg/dL RADIOLOGY: Interpreted by Radiologist. No orders to display ---- NURSING NOTES AND VITALS REVIEWED ------ The nursing notes within the ED encounter and vital signs as below have been reviewed. BP (!) 169/106 Pulse 96 Temp 98.2 degrees F (36.8 degrees C) Resp 18 Ht 5' 3 Wt 136.1 kg (300 lb) SpO2 95% BMI 53.14 kg/m Oxygen Saturation Interpretation: Normal ---------PHYSICAL EXAM Constitutional/Genera l: Alert and oriented x3, well appearing, non toxic in NAD Head: NC/AT Eyes: PERRL, EOMI Mouth: Oropharynx clear, handling secretions, no trismus Neck: Supple, full ROM, no meningeal signs Pulmonary: Lungs clear to auscultation bilaterally, no wheezes, rales, or rhonchi. Not in respiratory distress Cardiovascular: Regular rate and rhythm, no murmurs, gallops, or rubs. 2+ distal pulses Abdomen: Soft, non tender, non distended, Extremities: Moves all extremities x 4. Warm and well perfused Skin: warm and dry without rash Neurologic: GCS 15, no focal deficits Psych: Normal Affect --------- ED COURSE/MEDICAL DECISION MAKING ------- Medications meclizine (ANTIVERT) tablet 50 mg (50 mg Oral Given 08/29/231935) ketorolac (TORADOL) injection 30 mg (30 mg Intramuscular Given 08/29/231935) Medical Decision Making: Will check CBC in light of anemia history Counseling: The emergency provider has spoken with the patient and discussed today's results, in addition to providing specific details for the plan of care and counseling regarding the diagnosis and prognosis. Questions are answered at this time and they are agreeable with the plan. IMPRESSION AND DISPOSITION IMPRESSION 1. Vertigo 2. Lightheaded 3. Acute nonintractable headache, unspecified headache type DISPOSITION Disposition: discharged to home Patient condition is stable Summation Patient Course: Improved ED Medications administered this visit: Medications meclizine (ANTIVERT) tablet 50 mg (50 mg Oral Given 08/29/231935) k (more content not included)... Normal [facility] POC BASIC METABOLIC PANEL - [facility] 08-29-2023 Chloride [Moles/Vol] 108 mmol/L Normal 98-108 [facility] Comment on above: Order Comment: [facility] has implemented the eGFR calculation approach that does not have a coefficient for race that conforms to the NKF-ASN Task Force Recommendations. CO2 [Moles/Vol] 22 mmol/L Normal 21-32 [facility] Comment on above: Order Comment: [facility] has implemented the eGFR calculation approach that does not have a coefficient for race that conforms to the NKF-ASN Task Force Recommendations. Creatinine [Mass/Vol] 0.84 mg/dL Normal 0.40-1.10 [facility] Comment on above: Order Comment: [facility] has implemented the eGFR calculation approach that does not have a coefficient for race that conforms to the NKF-ASN Task Force Recommendations. Glucose [Mass/Vol] 110 mg/dL High 65-99 [facility] Comment on above: Order Comment: [facility] has implemented the eGFR calculation approach that does not have a coefficient for race that conforms to the NKF-ASN Task Force Recommendations. POC GFR 98 mL/min/1.73 m2 Normal >=60 [facility] Comment on above: Order Comment: [facility] has implemented the eGFR calculation approach that does not have a coefficient for race that conforms to the NKF-ASN Task Force Recommendations. Result Comment: Lanny mated GFR was calculated using the 2020 CKD-EPI creatinine equation. POC IONIZED CALCIUM 4.8 mg/dL Normal 4.5-5.3 [facility] Comment on above: Order Comment: [facility] has implemented the eGFR calculation approach that does not have a coefficient for race that conforms to the NKF-ASN Task Force Recommendations. Potassium [Moles/Vol] 4.0 mmol/L Normal 3.5-5.1 [facility] Comment on above: Order Comment: [facility] has implemented the eGFR calculation approach that does not have a coefficient for race that conforms to the NKF-ASN Task Force Recommendations. Sodium [Moles/Vol] 143 mmol/L Normal 135-145 [facility] Comment on above: Order Comment: [facility] has implemented the eGFR calculation approach that does not have a coefficient for race that conforms to the NKF-ASN Task Force Recommendations. Urea nitrogen [Mass/Vol] 14 mg/dL Normal 8-25 [facility] Comment on above: Order Comment: [facility] has implemented the eGFR calculation approach that does not have a coefficient for race that conforms to the NKF-ASN Task Force Recommendations. POC CBC AND DIFFERENTIALon 0 - BASOPHILS ABSOLUTE COUNT 0.03 K/mcL Normal 0.00-0.30 [facility] Basophils/100 WBC (Bld) 0.3 % Normal [facility] Eosinophils (Bld) [#/Vol] 0.30 10*3/uL Normal 0.00-0.50 [facility] Eosinophils/100 WBC (Bld) 2.9 % Normal [facility] Erythrocyte distribution width (RBC) [Ratio] 14.6 % Normal 11.6-14.8 [facility] Hematocrit (Bld) [Volume fraction] 43.1 % Normal 36.0-46.0 [facility] Hemoglobin (Bld) [Mass/Vol] 13.3 g/dL Normal 12.0-16.0 [facility] IG ABSOLUTE 0.02 K/mcL Normal 0.00-0.30 [facility] IG PERCENT 0.20 % Normal [facility] Comment on above: Result Comment: The IG parameter is the percentage of metamyelocytes, myelocytes and promyelocytes. An immature granulocyte count (IG) of 1% or more suggests the possibility of infection, an IG count of 3% is very likely related to an infection. Lymphocytes (Bld) [#/Vol] 2.63 10*3/uL Normal 0.90-4.00 [facility] Lymphocytes/100 WBC (Bld) 25.8 % Normal [facility] MCH (RBC) [Entitic mass] 23.1 pg Low 26.0-34.0 [facility] MCV (RBC) [Entitic vol] 74.7 fL Low 80.0-100.0 [facility] MEAN CORPUSCULAR HEMOGLOBIN CONC 30.9 g/dL Low 31.0-37.0 [facility] Monocytes (Bld) [#/Vol] 0.60 10*3/uL Normal 0.30-0.90 [facility] Monocytes/100 WBC (Bld) 5.9 % Normal [facility] NEUTROPHILS ABSOLUTE COUNT 6.60 K/mcL Normal 1.70-7.00 [facility] Neutrophils/100 WBC (Bld) 64.9 % Normal [facility] Platelet mean volume (Bld) [Entitic vol] 9.6 fL Normal 9.4-12.4 [facility] Platelets (Bld) [#/Vol] 372 10*3/uL Normal 150-400 [facility] RBC (Bld) [#/Vol] 5.77 10*6/uL High 4.00-5.20 [facility] WBC (Bld) [#/Vol] 10.18 10*3/uL Normal 4.50-11.00 [facility] Basic metabolic 2000 panelon 05-28-2022 Anion gap [Moles/Vol] 12 mmol/L 10 - 2 0 mmol/L [facility] Calcium [Mass/Vol] 9.0 mg/dL 8.4 - 10. 2 mg/dL [facility] Chloride [Moles/Vol] 107 mmol/L 98 - 10 8 mmol/L [facility] Creatinine [Mass/Vol] 0.68 mg/dL 0.40 - 1.10 mg/dL [facility] GFR/1.73 sq M.predicted CKD-EPI (S/P/Bld) [Vol rate/Area] 123 - PINF [facility] Comment on above: Estimated GFR was ca lculated using the 2020 CKD-EPI creatinine equation. Glucose [Mass/Vol] 96 mg/dL 65 - 99 mg/dL [facility] HCO3 [Moles/Vol] 25 mmol/L 21 - 32 mmol/L [facility] Potassium [Moles/Vol] 4.5 mmol/L 3.5 - 5.1 mmol/L [facility] Sodium [Moles/Vol] 139 mmol/L 135 - 145 mmol/L [facility] Urea nitrogen [Mass/Vol] 10 mg/dL 8 - 25 mg/dL [facility] Urea nitrogen/Creatinine [Mass ratio] 14.7 mg/mg 10.0 - 20.0 [facility] has implemented the eGFR calculation approach that does not have a coefficient for race that conforms to the NKF-ASN Task Force Recommendations. [facility] HbA1c (Bld) [Mass fraction]O rdered By: Andra Carrillo on 05-28-2022 Average glucose Estimated from glycated hemoglobin (Bld) [Mass/Vol] 105 mg/dL 68 - 114 mg/dL [facility] Interpretation and review of laboratory results Normal [facility] Normal: 4.0% - 5.6% Increased risk for diabetes: 5.7% - 6.4% Diabetes: >= 6.5% Pediatrics: No established reference range Estimated average glucose: 68-114 mg/dL [facility] Hemoglobin [id number] By: Lulú Carrillo on 05-28-2022 HbA1c (Bld) [Mass fraction] 5.3 % 4.0 - 5.6 % [facility] Hepatic function 2000 panelo n 05-28-2022 Albumin [Mass/Vol] 3.3 g/dL 3.2 - 5.2 g/dL [facility] ALP [Catalytic activity/Vol] 104 U/L 40 - 140 U/L [facility] ALT [Catalytic activity/Vol] 65 U/L 14 - 65 U/L [facility] AST [Catalytic activity/Vol] 55 U/L High 0 - 45 U/L [facility] Bilirubin [Mass/Vol] 0.4 mg/dL 0.0 - 1 .3 mg/dL [facility] Bilirubin.conjugated [Mass/Vol] 0.1 mg/dL 0.0 - 0.4 mg/dL [facility] Protein [Mass/Vol] 6.9 g/dL 6.0 - 8.0 g/dL [facility] Lipid 1996 panelon Cholesterol [Mass/Vol] 131 mg/dL 100 - 199 mg/dL [facility] Comment on above: National Cholesterol Education Program Guidelines: Cholesterol Desirable: <200 mg/dL Borderline High: 200-239 mg/dL High: greater than or equal to 240 mg/dL Cholesterol in HDL [Mass/Vol] 38 mg/dL Low 40 - 59 mg/dL [facility] Comment on above: National Cholesterol Education Program Guidelines: HDL Cholesterol Low: <40 mg/dL Near Optimal: 40-59 mg/dL High: greater than or equal to 60 mg/dL Cholesterol in LDL [Mass/Vol] 70 mg/dL 10 - 130 mg/dL [facility] Comment on above: National Cholesterol Education Program Guidelines: LDL Cholesterol Optimal: <100 mg/dL Near Optimal/above Optimal: 100-129 mg/dL Borderline High: 130-159 mg/dL High: 160-189 mg/dL Very High: greater than or equal to 190 mg/dL Cholesterol non HDL [Mass/Vol] 93 mg/dL [facility] Comment on above: National Cholesterol Education Program Guidelines: NON HDL Cholesterol Desirable: <130 mg/dL Borderline High: 130-159 mg/dL High: 160-189 mg/dL Very High: > or = 190 mg/dL Cholesterol.total/Cho lesterol in HDL [Mass ratio] 3.4 {ratio} ratio [facility] Comment on above: Female Cholesterol/H DL Ratio: Average risk: 4.4 1/2 average risk: 3.3 2 x average risk: 7.1 Triglyceride [Mass/Vol] 117 mg/dL 30 - 150 mg/dL [facility] Comment on above: National Cholesterol Education Program Guidelines: Triglyceride Normal: <150 mg/dL Borderline High: 150-199 mg/dL High: 200-499 mg/dL Very High: greater than or equal to 500 mg/dL No Panel Informationon 05-28 Interpretation and review of laboratory results Normal [facility] Interpretation and review of laboratory results Abnormal [facility] TSH DL <= 0.005 mIU/L Qnon 0 05-28-2022 TSH Qn 2.09 m[IU]/L [facility] COVID-19, MOLECULARon 2021 SARS-CoV-2 (COVID-19) Ab IA Ql Not detected Normal Not Detected [facility] Comment on above: Result Comment: This test was performed under the FDA's Emergency Use Authorization (EUA). Testing was performed using the Kiran ID NOW COVID-19 assay on the ID NOW platform. This test has not been approved for use in asymptomatic patients and its performance in this patient population has not been evaluated. Negative results do not rule out the presence of SARS-CoV-2/COVID-19. Fact sheets for the EUA can be found at the following links: For Healthcare Providers: https://www.fda.gov/media/120229/download For Patients: https://www.fda.gov/media/200424/download CBC + DIFFon 12-25-2021 Baso # 0.00 x10EE3/UL Normal 0.00 - 0.10 [facility] Comment on above: Performed By: #### 2 [id number] #### [facility],[address] [place] [address] 52893 Basophils/100 WBC (Bld) 0.5 % Normal 0.0 - 2.0 [facility] Comment on above: Performed By: #### 2 17589 #### [facility],[address] [place] [address] 31805 CBC + DIFF Normal [facility] Comment on above: Result Comment: CBC- COMPLETE BLOOD COUNT Performed By: #### 2 13754 #### [facility],[address] [place] [address] 59210 EO # 0.30 x10EE3/UL Normal 0.00 - 0.50 [facility] Comment on above: Performed By: #### 2 84621 #### [facility],[address] [place] [address] 93739 Eosinophils/100 WBC (Bld) 3.2 % Normal 0.0 - 7.0 [facility] Comment on above: Performed By: #### 2 30689 #### [facility],[address] [place] [address] 40976 Erythrocyte distribution width (RBC) [Ratio] 14.2 % Normal 12.0 - 15.6 [facility] Comment on above: Performed By: #### 2 68376 #### [facility],[address] [place] [address] 48821 Hematocrit (Bld) [Volume fraction] 37.4 % Normal 34.0 - 46.0 [facility] Comment on above: Performed By: #### 2 18031 #### [facility],[address] [place] [address] Hemoglobin (Bld) [Mass/Vol] 12.3 g/dL Normal 12.0 - 16.0 [facility] Comment on above: Performed By: #### 2 80505 #### [facility],[address] [place] [address] Lymph # 1.90 x10EE3/UL Normal 0.80 - 2.80 [facility] Comment on above: Performed By: #### 2 13625 #### [place] [address] Lymphocytes/100 WBC (Bld) 20.5 % Normal 20.0 - 45.0 [facility] Comment on above: Performed By: #### 2 47293 #### [facility],[address] [place] [address] MANUAL DIFF N/A Normal [facility] Comment on above: Performed By: #### 2 67926 #### [facility],[address] [place] [address] MCH (RBC) [Entitic mass] 25 pg Low 27 - 33 [facility] Comment on above: Performed By: #### 2 52227 #### [place] [address] MCHC 33 X10 3 Normal 32 - 36 [facility] Comment on above: Performed By: #### 2 39713 #### [place] [address] MCV (RBC) [Entitic vol] 77 fL Low 80 - 99 [facility] Comment on above: Performed By: #### 2 51490 #### [place] [address] Nuckolls # 0.60 x10EE3/UL Normal 0.20 - 1.00 [facility] Comment on above: Performed By: #### 2 72741 #### [facility],[address] [place] [address] MONOS % 6.6 % Normal 0.0 - 10.0 [facility] Comment on above: Performed By: #### 2 19361 #### [facility],[address] [place] [address] Morphology Kristopher (Bld) [Interp] N/A Normal [facility] Comment on above: Result Comment: {CD] Performed By: #### 2 95424 #### [place] [address] Neut # 6.60 x10EE3/UL Normal 1.50 - 7.10 [facility] Comment on above: Performed By: #### 2 56816 #### [place] [address] Neutrophils/100 WBC (Bld) 69.2 % Normal 46.0 - 76.0 [facility] Comment on above: Performed By: #### 2 90951 #### [place] [address] PLATELET 338 x10EE3/UL Normal 150 - 450 [facility] Comment on above: Performed By: #### 2 06905 #### [place] [address] Platelet mean volume (Bld) [Entitic vol] 8.6 fL Normal 6.6 - 10.5 [facility] Comment on above: Result Comment: AUTO MATED DIFFERENTIAL Performed By: #### 2 97413 #### [place] [address] RBC 4.87 x 10EE6/UL Normal 4.10 - 5.30 [facility] Comment on above: Performed By: #### 2 13619 #### [facility],[address] [place] [address] 51845 WBC 9.5 x 10EE3/UL Normal 4.5 - 10.8 [facility] Comment on above: Performed By: #### 2 30023 #### [facility],[address] [place] [address] 41149 CMP with eGFRon 12-25-2021 AGE 26 years Normal [facility] Comment on above: Performed By: #### 2 68544 #### [facility],[address] [place] [address] 83503 Albumin [Mass/Vol] 3.4 g/dL Normal 3.4 - 5.0 [facility] Comment on above: Performed By: #### 2 52349 #### [facility],[address] [place] [address] 77961 Albumin/Globulin [Mass ratio] 0.9 {ratio} Normal 0.9 - 1.6 [facility] Comment on above: Performed By: #### 2 33732 #### [facility],[address] [place] [address] 47546 ALK PHOS 92 U/L Normal 46 - 116 [facility] Comment on above: Performed By: #### 2 35857 #### [facility],[address] [place] [address] 97608 ALT [Catalytic activity/Vol] 74 U/L High 14 - 59 [facility] Comment on above: Performed By: #### 2 51800 #### [facility],[address] [place] [address] 79679 Anion gap [Moles/Vol] 13 mmol/L Normal 10 - 20 [facility] Comment on above: Performed By: #### 2 51259 #### [facility],[address] [place] [address] 29681 AST [Catalytic activity/Vol] 46 U/L High 13 - 39 [facility] Comment on above: Performed By: #### 2 18437 #### [facility],[address] [place] [address] 06509 B/C RATIO 14 ratio Normal 0 - 30 [facility] Comment on above: Performed By: #### 2 03386 #### [facility],[address] [place] [address] 71853 Bilirubin [Mass/Vol] 0.5 mg/dL Normal 0.2 - 1.0 [facility] Comment on above: Performed By: #### 2 05057 #### [facility],[address] [place] [address] 15978 Calcium [Mass/Vol] 9.0 mg/dL Normal 8.5 - 10.1 [facility] Comment on above: Performed By: #### 2 51642 #### [facility],[address] [place] [address] 47797 Chloride [Moles/Vol] 106 mmol/L Normal 98 - 107 [facility] Comment on above: Performed By: #### 2 94618 #### [facility],[address] [place] [address] 17344 CMP with eGFR Normal [facility] Comment on above: Result Comment: COMP REHENSIVE METABOLIC PANEL Performed By: #### 2 97348 #### [facility],[address] [place] [address] 68505 CO2 [Moles/Vol] 28.4 mmol/L Normal 21.0 - 32.0 [facility] Comment on above: Performed By: #### 2 51641 #### [facility],[address] [place] [address] 61687 Creatinine [Mass/Vol] 0.71 mg/dL Normal 0.55 - 1.02 [facility] Comment on above: Performed By: #### 2 11468 #### [facility],[address] [place] [address] 69837 GFR/1.73 sq M.predicted among non-blacks MDRD (S/P/Bld) [Vol rate/Area] mL/min/{1.73_m2} Normal 60 - 999 [facility] Comment on above: Performed By: #### 2 83210 #### [facility],[address] [place] [address] 36012 Result Comment: ACCO RDING TO THE NATIONAL KIDNEY DISEASE EDUCATION PROGRAM(NKDE), A NORMAL eGFR IS A VALUE GREATER THAN OR EQUAL TO 60 ML/MIN/1.73 SQ METERS. CHRONIC KIDNEY DISEASE: <60mL/MIN/1.73 SQ METERS KIDNEY FAILURE: <15mL/MIN/1.73 SQ METERS THIS TEST SHOULD ONLY BE USED FOR PATIENTS 18 YEARS OF AGE AND OLDER. Globulin (S) [Mass/Vol] 4.0 g/dL High 1.5 - 3.8 [facility] Comment on above: Performed By: #### 2 05049 #### [facility],[address] [place] [address] 83575 Glucose [Mass/Vol] 89 mg/dL Normal 74 - 106 [facility] Comment on above: Performed By: #### 2 39830 #### [facility],[address] [place] [address] 65473 Potassium [Moles/Vol] 4.2 mmol/L Normal 3.5 - 5.1 [facility] Comment on above: Performed By: #### 2 43355 #### [facility],[address] [place] [address] 76286 Protein [Mass/Vol] 7.4 g/dL Normal 6.4 - 8.2 [facility] Comment on above: Performed By: #### 2 77578 #### [facility],[address] [place] [address] 71383 Sodium [Moles/Vol] 143 mmol/L Normal 136 - 145 [facility] Comment on above: Performed By: #### 2 84447 #### [facility],[address] [place] [address] 00912 Urea nitrogen [Mass/Vol] 10 mg/dL Normal 7 - 18 [facility] Comment on above: Performed By: #### 2 90060 #### [facility],[address] [place] [address] 37751 TSHon 12-25-2021 TSH Qn 2.32 m[IU]/L Normal 0.35 - 3.74 [facility] Comment on above: Performed By: #### 2 83811 #### [facility],[address] [place] [address] 62558 EMERGENCY REPORTon 1 EMERGENCY REPORT [facility] EMERGENCY ROOM REPORT NAME ACCOUNT SEX AGE ADMIT DISCHARGE PT MED. RECORD# NUMBER DATE DATE TYPE TOSHIA [id number] F 25 02/15/21 02/16/21 3 RACHAEL NELSON [id number] ROOM: ER DATE OF : 1995 DICTATING PHYSICIAN: Xavier Lockwood CHIEF COMPLAINT: Cough. HISTORY OF PRESENT ILLNESS: The patient is a 25-year-old female who presents for evaluation of a cough, sore throat, runny nose, nausea, and vomiting that began on , 3 days ago. The patient's had tested positive for COVID-19 on . The patient reports that she had been feeling ill prior to her testing positive. The patient states that yesterday she had taken a test at home, and this was faintly positive. The patient also notes that she has had a fever at home. The patient is concerned that she may have COVID-19 in the setting of recently becoming . The patient notes a history of PCOS, and she has been trying to get with her for the last 5 years. PAST MEDICAL HISTORY: Denies. PAST SURGICAL HISTORY: Denies. ALLERGIES: No known drug allergies. SOCIAL HISTORY: The patient lives with her family. She smokes one quarter of a pack of cigarettes a day. The patient occasionally has alcohol. She denies illicit substance use. She denies concerns for domestic violence or thoughts of self harm. She states that her last menstrual period was 2 months ago. REVIEW OF SYSTEMS: Pertinent positive as per HPI, please see paper chart for additional details. PHYSICAL EXAMINATION: VITAL SIGNS: Blood pressure 135/83, pulse 112, respiratory rate 16, temperature 97.8, oxygen saturation 92% on room air, weight 280 pounds, and height 63 inches. Pain: The patient denies any pain. GENERAL: In general, the patient is awake, alert, and oriented, and in no acute distress on room air. HEENT: Atraumatic and normocephalic. Mucous membranes are moist. NECK: Range of motion grossly normal, supple. CARDIOVASCULAR: Regular rate and rhythm. No murmurs, rubs, or gallops. PULMONARY: Clear to auscultation bilaterally. No wheezes, rales, or rhonchi. ABDOMEN: Soft, nontender, and nondistended. Bowel sounds are positive, obese. NEUROLOGIC: Cranial nerves II-XII are grossly intact. No focal sensory or motor deficits. PSYCHIATRIC: Appropriate for age and situation. Page 1 of 2 RACHAEL POPE Emergency Room Report POPERACHAEL TRINH : 1995 DIAGNOSTIC DATA: CBC is unremarkable. CMP is significant for a sodium of 133, chloride 96, BUN 6. AST is 171, ALT 237. Urinalysis is positive for 25 leukocytes, nitrite negative. No other findings on urinalysis. Serum test is negative. COVID-19 testing is positive. Chest x-ray is also obtained, and is without acute findings. MEDICAL DECISION MAKING/EMERGENCY DEPARTMENT COURSE AND TREATMENT: The patient is a 25-year-old female who presents for evaluation of findings consistent with COVID-19 and upper respiratory infection. The patient's serum test is negative at this time. The patient has been having some nausea as well. Liver function tests are mildly elevated. This would benefit from repeat testing as the patient may have fatty liver disease. Abdominal exam is benign. DIAGNOSES: 1. COVID-19. 2. Upper respiratory infection. PLAN/DISPOSITION: We will give a prescription for Tessalon Perles as well given the patient's dry cough. Physical evaluation is overall reassuring. Oxygen saturation has been well above 90% throughout emergency department stay without supplemental oxygen. I do feel that the patient is a low risk for outpatient followup without supplemental oxygen. All of the patient's questions were answered to her satisfaction at this time. She does feel comfortable with plan for outpatient followup. I did recommend adequate hydration, as well as rest over the next few days and potentially week or 2. A work release was provided to promote isolation. Once again, the patient did feel comfortable with plan for outpatient followup, and was discharged home in good clinical condition. Condition: Good. Disposition: Home. Dictated By: Xavier Lockwood MD 02/16/21 03:00 JOB #: [id number] Transcribed By: am 02/16/21 18:14 Electronically signed by: DR. XAVIER LOCKWOOD 03/11/21 02:15 Page 2 of 2 RACHAEL POPE Emergency Room Report Normal [facility] C-REACTIVE PROTEINon 021 CRP 5.60 mg/dl High 0.00 - 0.90 [facility] Comment on above: Performed By: #### 2 77870 #### [facility],[address] [place] [address] CBC + DIFFon 02-26-2021 Baso # 0.10 x10EE3/UL Normal 0.00 - 0.10 [facility] Comment on above: Performed By: #### 2 89347 #### [facility],[address] [place] [address] 62228 Basophils/100 WBC (Bld) 0.4 % Normal 0.0 - 2.0 [facility] Comment on above: Performed By: #### 2 26164 #### [facility],[address] [place] [address] 83852 CBC + DIFF Normal [facility] Comment on above: Result Comment: CBC- COMPLETE BLOOD COUNT Performed By: #### 2 06970 #### [facility],[address] [place] [address] 26415 EO # 0.10 x10EE3/UL Normal 0.00 - 0.50 [facility] Comment on above: Performed By: #### 2 66711 #### [facility],[address] [place] [address] 74678 Eosinophils/100 WBC (Bld) 0.4 % Normal 0.0 - 7.0 [facility] Comment on above: Performed By: #### 2 03352 #### [facility],[address] [place] [address] 35998 Erythrocyte distribution width (RBC) [Ratio] 14.3 % Normal 12.0 - 15.6 [facility] Comment on above: Performed By: #### 2 60307 #### [facility],[address] [place] [address] Hematocrit (Bld) [Volume fraction] 45.0 % Normal 34.0 - 46.0 [facility] Comment on above: Performed By: #### 2 49136 #### [facility],[address] [place] [address] Hemoglobin (Bld) [Mass/Vol] 14.8 g/dL Normal 12.0 - 16.0 [facility] Comment on above: Performed By: #### 2 97743 #### [facility],[address] [place] [address] Lymph # 0.90 x10EE3/UL Normal 0.80 - 2.80 [facility] Comment on above: Performed By: #### 2 40343 #### [facility],[address] [place] [address] Lymphocytes/100 WBC (Bld) 6.6 % Low 20.0 - 45.0 [facility] Comment on above: Performed By: #### 2 04343 #### [facility],[address] [place], [place] [id number] MANUAL DIFF N/A Normal [facility] Comment on above: Performed By: #### 2 20567 #### [facility],[address] [place] [address] MCH (RBC) [Entitic mass] 25 pg Low 27 - 33 [facility] Comment on above: Performed By: #### 2 87110 #### [place] [id number] MCHC 33 X10 3 Normal 32 - 36 [facility] Comment on above: Performed By: #### 2 17012 #### [facility],[address] [place], [place] [id number] MCV (RBC) [Entitic vol] 76 fL Low 80 - 99 [facility] Comment on above: Performed By: #### 2 56250 #### [facility],[address] [place] [address] 36634 Nuckolls # 1.00 x10EE3/UL Normal 0.20 - 1.00 [facility] Comment on above: Performed By: #### 2 98351 #### [facility],[address] [place] [address] 17089 MONOS % 7.4 % Normal 0.0 - 10.0 [facility] Comment on above: Performed By: #### 2 59988 #### [facility],[address] [place] [address] 63089 Morphology Kristopher (Bld) [Interp] SEE BELOW Normal [facility] Comment on above: Performed By: #### 2 14174 #### [facility],[address] [place] [address] 37070 Neut # 11.80 x10EE3/UL High 1.50 - 7.10 [facility] Comment on above: Performed By: #### 2 24905 #### [facility],[address] [place] [address] 25275 Neutrophils/100 WBC (Bld) 85.2 % High 46.0 - 76.0 [facility] Comment on above: Performed By: #### 2 19093 #### [facility],[address] [place] [address] 71964 PLATELET 456 x10EE3/UL High 150 - 450 [facility] Comment on above: Performed By: #### 2 09179 #### [facility],[address] [place] [address] 20517 Platelet mean volume (Bld) [Entitic vol] 8.7 fL Normal 6.6 - 10.5 [facility] Comment on above: Result Comment: AUTO MATED DIFFERENTIAL Performed By: #### 2 72184 #### [facility],[address] [place] [address] 53553 PLT EST NORMAL Normal [facility] Comment on above: Performed By: #### 2 05596 #### [facility],[address] [place] [address] 52051 RBC 5.94 x 10EE6/UL High 4.10 - 5.30 [facility] Comment on above: Performed By: #### 2 08495 #### [facility],[address] [place] [address] 78303 WBC 13.8 x 10EE3/UL High 4.5 - 10.8 [facility] Comment on above: Performed By: #### 2 08340 #### [facility],[address] [place] [address] 29959 Other GIANT PLATELETS SEEN Normal [facility] Comment on above: Result Comment: {CD] Performed By: #### 2 38987 #### [facility],[address] [place] [address] 53556 CHEST 1 VIEWon 02-26-2021 CHEST 1 VIEW [place] [address] Patient: RACHAEL POPE Phone#: : 1995 Age: 25 Gender: F Pt. Type: ER Account: [id number] Location: [facility] Ordering: KUSH MORENO Exam Date: 02/26/2021/16:40 Family Phys: TRES JACQUES Charge Code: 953509 Physician: Lyman Order #: [id number] DLP Dose#: PROCEDURE: X-RAY CHEST 1 VIEW COMPARISON: [facility], , CHEST 1 VIEW, 02/16/2021, 0:31. INDICATIONS: Cough. FINDINGS: LUNGS: New patchy infiltrates in the central and lower lung juarez bilaterally consistent with pneumonia and compatible with covid-19 infection. VASCULATURE: Normal. Unremarkable pulmonary vasculature. CARDIAC: Normal. No cardiac silhouette abnormality or cardiomegaly. MEDIASTINUM: Normal. No visible mass or adenopathy. PLEURA: Normal. No effusion or pleural thickening. BONES: Normal. No fracture or visible bony lesion. OTHER: Negative. CONCLUSION: 1. Bilateral pneumonia Dictated by: Adrian Farnsworth MD on 02/26/2021 at 16:55 Approved by: Adrian Farnsworth MD on 02/26/2021 at 16:57 Normal [facility] CMP with eGFRon 02-26-2021 AGE 25 years Normal [facility] Comment on above: Performed By: #### 2 38287 #### [facility],[address] [place] [address] 94656 Albumin [Mass/Vol] 3.6 g/dL Normal 3.4 - 5.0 [facility] Comment on above: Performed By: #### 2 41838 #### [facility],[address] [place] [address] 08430 Albumin/Globulin [Mass ratio] 0.7 {ratio} Low 0.9 - 1.6 [facility] Comment on above: Performed By: #### 2 75885 #### [facility],[address] [place] [address] 16343 ALK PHOS 66 U/L Normal 46 - 116 [facility] Comment on above: Performed By: #### 2 69754 #### [facility],[address] [place] [address] 70850 ALT [Catalytic activity/Vol] 75 U/L High 14 - 59 [facility] Comment on above: Performed By: #### 2 63132 #### [facility],[address] [place] [address] 20355 Anion gap [Moles/Vol] 20 mmol/L Normal 10 - 20 [facility] Comment on above: Performed By: #### 2 50767 #### [facility],[address] [place] [address] 19305 AST [Catalytic activity/Vol] 43 U/L High 13 - 39 [facility] Comment on above: Performed By: #### 2 71185 #### [facility],[address] [place] [address] 73431 B/C RATIO 14 ratio Normal 0 - 30 [facility] Comment on above: Performed By: #### 2 23312 #### [facility],[address] [place] [address] 86840 Bilirubin [Mass/Vol] 0.9 mg/dL Normal 0.2 - 1.0 [facility] Comment on above: Performed By: #### 2 31841 #### [facility],[address] [place] [address] 82049 Calcium [Mass/Vol] 9.6 mg/dL Normal 8.5 - 10.1 [facility] Comment on above: Performed By: #### 2 16683 #### [facility],[address] [place] [address] 90060 Chloride [Moles/Vol] 97 mmol/L Low 98 - 107 [facility] Comment on above: Performed By: #### 2 36177 #### [facility],[address] [place] [address] 07349 CMP with eGFR Normal [facility] Comment on above: Result Comment: COMP REHENSIVE METABOLIC PANEL Performed By: #### 2 34654 #### [facility],[address] [place] [address] 53713 CO2 [Moles/Vol] 22.8 mmol/L Normal 21.0 - 32.0 [facility] Comment on above: Performed By: #### 2 97607 #### [facility],[address] [place] [address] 32475 Creatinine [Mass/Vol] 0.86 mg/dL Normal 0.55 - 1.02 [facility] Comment on above: Performed By: #### 2 93036 #### [facility],[address] [place] [address] 24470 GFR/1.73 sq M.predicted among non-blacks MDRD (S/P/Bld) [Vol rate/Area] mL/min/{1.73_m2} Normal 60 - 999 [facility] Comment on above: Performed By: #### 2 09674 #### [facility],[address] [place] [address] 07622 Result Comment: ACCO RDING TO THE NATIONAL KIDNEY DISEASE EDUCATION PROGRAM(NKDE), A NORMAL eGFR IS A VALUE GREATER THAN OR EQUAL TO 60 ML/MIN/1.73 SQ METERS. CHRONIC KIDNEY DISEASE: <60mL/MIN/1.73 SQ METERS KIDNEY FAILURE: <15mL/MIN/1.73 SQ METERS THIS TEST SHOULD ONLY BE USED FOR PATIENTS 18 YEARS OF AGE AND OLDER. Globulin (S) [Mass/Vol] 5.1 g/dL High 1.5 - 3.8 [facility] Comment on above: Performed By: #### 2 02238 #### [facility],[address] [place] [address] 28400 Glucose [Mass/Vol] 114 mg/dL High 74 - 106 [facility] Comment on above: Performed By: #### 2 14852 #### [facility],[address] [place] [address] 07229 Potassium [Moles/Vol] 3.7 mmol/L Normal 3.5 - 5.1 [facility] Comment on above: Performed By: #### 2 65082 #### [facility],[address] [place] [address] 22130 Protein [Mass/Vol] 8.7 g/dL High 6.4 - 8.2 [facility] Comment on above: Performed By: #### 2 05058 #### [facility],[address] [place] [address] 24423 Sodium [Moles/Vol] 136 mmol/L Normal 136 - 145 [facility] Comment on above: Performed By: #### 2 38366 #### [facility],[address] [place] [address] 55799 Urea nitrogen [Mass/Vol] 12 mg/dL Normal 7 - 18 [facility] Comment on above: Performed By: #### 2 24336 #### [facility],[address] [place] [address] 34516 CORONAVIRUS (SARS) ANTIGEN Renee Wood 02-26-2021 EXTERNAL QC DONE? YES Normal [facility] Comment on above: Performed By: #### 2 52434 #### [facility],[address] [place] [address] 98430 INTERNAL CONTROL PASS Normal [facility] Comment on above: Performed By: #### 2 30195 #### [facility],[address] [place] [address],[facility] [address] SARS ANTIGEN Negative Normal NORMAL: NEGATIVE [facility] Comment on above: Performed By: #### 2 46987 #### [facility],[address] [place] [address] 04784 SEND TO ? NO Normal [facility] Comment on above: Result Comment: SARS -CoV-2 THIS TEST IS BEING USED UNDER THE FDA EUA PROCEDURE. THIS ASSAY HAS BEEN VALIDATED AT [facility] FOR USE WITH NASAL AND NASOPHARYNGEAL SWAB SPECIMENS. INTERPRETIVE DATA TEST RESULTS SHOULD ALWAYS BE CONSIDERED IN THE CONTEXT OF CLINICAL OBSERVATIONS AND EPIDEMIOLOGICAL DATA IN MAKING FINAL DIAGNOSIS AND PATIENT MANAGEMENT DECISIONS. PATIENT MANAGEMENT SHOULD FOLLOW CURRENT CDC GUIDELINES. THE SHAUNA SARS ANTIGEN CARI DOES NOT DIFFERENTIATE BETWEEN SARS-CoV & SARS-CoV-2. A POSITIVE TEST RESULT INDICATES THE PRESENCE OF SARS-CoV-2 NUCLEOCAPSID PROTEIN ANTIGEN, AND THE PATIENT IS INFECTED WITH THE VIRUS AND PRESUMED TO BE CONTAGIOUS. A NEGATIVE TEST RESULT FOR THIS TEST MEANS THAT SARS-CoV-2 NUCLEOCAPSID PROTEIN ANTIGEN WAS NOT PRESENT IN THE SPECIMEN ABOVE THE LIMIT OF DETECTION. HOWEVER, A NEGATIVE RESULT DOES NOT RULE OUT COVID-19 AND SHOULD NOT BE USED THE SOLE BASIS FOR TREATMENT OR PATIENT MANAGEMENT DECISIONS. A NEGATIVE RESULT DOES NOT EXCLUDE THE POSSIBILITY OF COVID-19. NEGATIVE RESULTS, FROM PATIENTS WITH SYMPTOM ONSET BEYOND FIVE DAYS, SHOULD BE TREATED PRESUMPTIVE AND CONFIRMATION WITH A MOLECULAR ASSAY, IF NECESSARY, FOR PATIENT MANAGEMENT, MAY BE PERFORMED. WHEN DIAGNOSTIC TESTING IS NEGATIVE, THE POSSIBLILTY OF A FALSE NEGATIVE RESULT SHOULD BE CONSIDERED IN THE CONTEXT OF A PATIENT'S RECENT EXPOSURES AND THE PRESENCE OF CLINICAL SIGNS AND SYMPTOMS CONSISTENT WITH COVID-19. THE POSSIBILITY OF A FALSE NEGATIVE RESULT SHOULD ESPECIALLY BE CONSIDERED IF THE PATIENT'S RECENT EXPOSURES OR CLINICAL PRESENTATION INDICATE THAT COVID-19 IS LIKELY, AND DIAGNOSTIC TESTS FOR OTHER CAUSES OF ILLNESS (e.g., OTHER RESPIRATORY ILLNESS) ARE NEGATIVE. IF COVID-19 IS STILL SUSPECTED BASED ON EXPOSURE HISTORY TOGETHER WITH OTHER CLINICAL FINDINGS, RE-TESTING SHOULD BE CONSIDERED BY HEALTHCARE PROVIDERS IN CONSULTATION WITH PUBLIC HEALTH AUTHORITIES. Performed By: #### 2 38320 #### [facility],[address] [place] [address] CT CHEST (PE PROTOCOL)on CT CHEST (PE PROTOCOL) [place] [address] Patient: RACHAEL POPE Phone#: : 1995 Age: 25 Gender: F Pt. Type: ER Account: [id number] Location: [facility] Ordering: KUSH MORENO Exam Date: 02/26/2021/18:44 Family Phys: TRES JACQUES Charge Code: 926151 Physician: Lyman Order #: [id number] DLP Dose#: 44.30 PROCEDURE: CT CHEST WITH CONTRAST FOR PE COMPARISON: None. INDICATIONS: Dyspnea. TECHNIQUE: After obtaining the patient's consent, CT images were obtained with non-ionic intravenous contrast material. Multi-planar images were created to optimize visualization of vascular anatomy with MPR/MIPS and 3D imaging. All CT scans at this facility use dose modulation, iterative reconstruction, and/or weight based dosing when appropriate to reduce radiation dose to as low as reasonably achievable. IV CONTRAST: Omnipaque 350,80ml TOTAL DOSE: 44.30 CTDIvol(mGy) FINDINGS: VASCULATURE: Normal. No visible pulmonary arterial thrombus or attenuation. AORTA: Normal. No aneurysm or dissection. LUNGS: Multifocal patchy bilateral infiltrates are present. KATHY: Normal. No mass or adenopathy. MEDIASTINUM: Normal. No mass or adenopathy. CARDIAC: Normal. No enlargement, pericardial thickening, or significant calcification. PLEURA: Normal. No mass or effusion. CHEST WALL: Normal. No mass or axillary adenopathy. LIMITED ABDOMEN: Fatty changes of liver are present. There is minimal increase in attenuation in the dependent aspect of the gallbladder suspicious for gravel. BONES: Normal. No bony lesion or fracture. OTHER: Negative. CONCLUSION: 1. There is no evidence of pulmonary embolus. 2. Patchy bilateral infiltrates are present. Continued Report - Page 2 of 2 Patient: RACHAEL POPE Phone#: : 1995 Age: 25 Gender: F Pt. Type: ER Account: [id number] Location: 052 Ordering: KUSH MORENO Exam Date: 02/26/2021/18:44 Family Phys: TRES JACQUES Charge Code: [id number] Physician: Lyman Order #: [id number] DLP Dose#: 44.30 3. Possible gravel in the gallbladder. Dictated by: Kelsea Pereira MD on 02/27/2021 at 9:19 Approved by: Kelsea Pereira MD on 02/27/2021 at 9:28 Normal [facility] CULTURE BLOODon 02-26-2021 Microscopic examination of blood, culture CULTURE BLOOD CULTURE BLOOD SET: 1 of 24HOUR REPORT NEGATIVE 48HOUR REPORT NEGATIVE 72HOUR REPORT NEGATIVE M I C R O B I O L O G Y R E P O R T FINAL Antimicrobial Susceptibility and Organism Identification Report Specimen Number : [id number] Requested : 02/26/21 Specimen Source : BLOOD Collected : 02/26/21 16:45 [facility] [facility] Isolation : EMERGENCY ROOM Received : 02/26/21 16:45 Requesting Physician : PRINCE HUANG ------ Patient/Specimen Tests and Comments Specimen Comments FINAL REPORT: NO GROWTH AT 5 DAYS ------ Tech : Source : BLOOD ID # : [id number] FINAL Report Date : / / : Collected : 02/26/21 16:45 03/04/21.174.Portr. 03/04/21.174.Setgo PLETE 1 of 1 NEGATIVE NEGATIVE NEGATIVE Normal [facility] Comment on above: Performed By: #### 2 84696 #### [facility],[address] [place] [address] 32589 D-DIMER, QUANTITATIVEon 12-0 D-DIMER QUANT 379 ng/ml High 0 - 230 [facility] Comment on above: Performed By: #### 2 52776 #### [facility],[address] [place] [address] 01145 D-DIMER, QUANTITATIVE Normal [facility] Comment on above: Result Comment: CRUZITO T D-DIMER Performed By: #### 2 20695 #### [facility],[address] [place] [address] LACTATEon 02-26-2021 Lactate [Moles/Vol] 1.9 mmol/L Normal 0.4 - 2.0 [facility] Comment on above: Performed By: #### 2 72752 #### [facility],[address] [place] [address] NT-proBNPon 02-26-2021 Natriuretic peptide B (Bld) [Mass/Vol] 23 pg/mL Normal 0 - 125 [facility] Comment on above: Performed By: #### 2 58540 #### [facility],[address] [place] [address] CBC + DIFFon 02-16-2021 Baso # 0.10 x10EE3/UL Normal 0.00 - 0.10 [facility] Comment on above: Performed By: #### 2 13232 #### [facility],[address] [place] [address] 98566 Basophils/100 WBC (Bld) 0.7 % Normal 0.0 - 2.0 [facility] Comment on above: Performed By: #### 2 47069 #### [facility],[address] [place] [address] CBC + DIFF Normal [facility] Comment on above: Result Comment: CBC- COMPLETE BLOOD COUNT Performed By: #### 2 22447 #### [facility],[address] [place] [address] 98792 EO # 0.00 x10EE3/UL Normal 0.00 - 0.50 [facility] Comment on above: Performed By: #### 2 61032 #### [facility],[address] [place] [address] 62044 Eosinophils/100 WBC (Bld) 0.1 % Normal 0.0 - 7.0 [facility] Comment on above: Performed By: #### 2 39552 #### [facility],[address] [place] [address] Erythrocyte distribution width (RBC) [Ratio] 14.2 % Normal 12.0 - 15.6 [facility] Comment on above: Performed By: #### 2 15475 #### [facility],[address] [place] [address] Hematocrit (Bld) [Volume fraction] 40.9 % Normal 34.0 - 46.0 [facility] Comment on above: Performed By: #### 2 89610 #### [facility],[address] [place] [address] Hemoglobin (Bld) [Mass/Vol] 13.5 g/dL Normal 12.0 - 16.0 [facility] Comment on above: Performed By: #### 2 82004 #### [facility],[address] [place] [address] Lymph # 1.60 x10EE3/UL Normal 0.80 - 2.80 [facility] Comment on above: Performed By: #### 2 07875 #### [facility],[address] [place] [address] Lymphocytes/100 WBC (Bld) 20.2 % Normal 20.0 - 45.0 [facility] Comment on above: Performed By: #### 2 23672 #### [facility],[address] [place] [address] MANUAL DIFF N/A Normal [facility] Comment on above: Performed By: #### 2 50274 #### [facility],[address] [place], [place] [id number] MCH (RBC) [Entitic mass] 25 pg Low 27 - 33 [facility] Comment on above: Performed By: #### 2 91829 #### [facility],[address] [place] [address] MCHC 33 X10 3 Normal 32 - 36 [facility] Comment on above: Performed By: #### 2 67881 #### [facility],[address] [place] [address] 74882 MCV (RBC) [Entitic vol] 77 fL Low 80 - 99 [facility] Comment on above: Performed By: #### 2 39506 #### [facility],[address] [place] [address] 35597 Nuckolls # 0.90 x10EE3/UL Normal 0.20 - 1.00 [facility] Comment on above: Performed By: #### 2 76057 #### [facility],[address] [place] [address] 30858 MONOS % 10.8 % High 0.0 - 10.0 [facility] Comment on above: Performed By: #### 2 56117 #### [facility],[address] [place] [address] 93702 Morphology Kristopher (Bld) [Interp] N/A Normal [facility] Comment on above: Result Comment: {CD] Performed By: #### 2 54643 #### [facility],[address] [place] [address] 60942 Neut # 5.40 x10EE3/UL Normal 1.50 - 7.10 [facility] Comment on above: Performed By: #### 2 14854 #### [facility],[address] [place] [address] 47405 Neutrophils/100 WBC (Bld) 68.2 % Normal 46.0 - 76.0 [facility] Comment on above: Performed By: #### 2 67227 #### [facility],[address] [place] [address] 14308 PLATELET 267 x10EE3/UL Normal 150 - 450 [facility] Comment on above: Performed By: #### 2 07746 #### [facility],[address] [place] [address] 37168 Platelet mean volume (Bld) [Entitic vol] 8.3 fL Normal 6.6 - 10.5 [facility] Comment on above: Result Comment: AUTO MATED DIFFERENTIAL Performed By: #### 2 24219 #### [facility],[address] [place] [address] 36826 RBC 5.35 x 10EE6/UL High 4.10 - 5.30 [facility] Comment on above: Performed By: #### 2 98841 #### [facility],[address] [place] [address] 10695 WBC 8.0 x 10EE3/UL Normal 4.5 - 10.8 [facility] Comment on above: Performed By: #### 2 25833 #### [facility],[address] [place] [address] 60528 CHEST 1 VIEWon 02-16-2021 CHEST 1 VIEW [place] [id number] Patient: RACHAEL POPE Phone#: : 1995 Age: 25 Gender: F Pt. Type: ER Account: [id number] Location: [facility] Ordering: XAVIER LOCKWOOD Exam Date: 02/16/2021/0:31 Family Phys: TRES JACQUES Charge Code: [id number] Physician: Lyman Order #: [id number] DLP Dose#: PROCEDURE: X-RAY CHEST 1 VIEW COMPARISON: [facility], XR, CHEST 2 VIEWS, 04/22/2019, 21:13. INDICATIONS: Pneumonia. FINDINGS: LUNGS: Normal. No significant pulmonary parenchymal abnormalities. VASCULATURE: Normal. Unremarkable pulmonary vasculature. CARDIAC: Normal. No cardiac silhouette abnormality or cardiomegaly. MEDIASTINUM: Normal. No visible mass or adenopathy. PLEURA: Normal. No effusion or pleural thickening. BONES: Normal. No fracture or visible bony lesion. OTHER: Negative. CONCLUSION: No acute disease. No significant change has occurred. Dictated by: Kelsea Pereira MD on 02/16/2021 at 9:11 Approved by: Kelsea Pereira MD on 02/16/2021 at 9:12 Normal [facility] CMP with eGFRon 11-29-2021 AGE 25 years Normal [facility] Comment on above: Performed By: #### 2 04516 #### [facility],[address] [place] [address] 11002 Albumin [Mass/Vol] 3.8 g/dL Normal 3.4 - 5.0 [facility] Comment on above: Performed By: #### 2 87700 #### [facility],[address] [place] [address] 80698 Albumin/Globulin [Mass ratio] 0.9 {ratio} Normal 0.9 - 1.6 [facility] Comment on above: Performed By: #### 2 45489 #### [facility],[address] [place] [address] 32743 ALK PHOS 98 U/L Normal 46 - 116 [facility] Comment on above: Performed By: #### 2 04572 #### [facility],[address] [place] [address] 81757 ALT [Catalytic activity/Vol] 237 U/L High 14 - 59 [facility] Comment on above: Performed By: #### 2 55756 #### [facility],[address] [place] [address] 64472 Anion gap [Moles/Vol] 16 mmol/L Normal 10 - 20 [facility] Comment on above: Performed By: #### 2 53288 #### [facility],[address] [place] [address] 23053 AST [Catalytic activity/Vol] 171 U/L High 13 - 39 [facility] Comment on above: Performed By: #### 2 50280 #### [address] [address] B/C RATIO 7 ratio Normal 0 - 30 [facility] Comment on above: Performed By: #### 2 21805 #### [facility],[address] [place] [address] 88960 Bilirubin [Mass/Vol] 0.6 mg/dL Normal 0.2 - 1.0 [facility] Comment on above: Performed By: #### 2 93116 #### [facility],[address] [place] [address] Calcium [Mass/Vol] 8.6 mg/dL Normal 8.5 - 10.1 [facility] Comment on above: Performed By: #### 2 48803 #### [facility],[address] [place] [address] Chloride [Moles/Vol] 96 mmol/L Low 98 - 107 [facility] Comment on above: Performed By: #### 2 50148 #### [facility],[address] [place] [address] CMP with eGFR Normal [facility] Comment on above: Result Comment: COMP REHENSIVE METABOLIC PANEL Performed By: #### 2 77526 #### [facility],[address] [place] [address] CO2 [Moles/Vol] 24.9 mmol/L Normal 21.0 - 32.0 [facility] Comment on above: Performed By: #### 2 51532 #### [facility],[address] [place] [address] Creatinine [Mass/Vol] 0.82 mg/dL Normal 0.55 - 1.02 [facility] Comment on above: Performed By: #### 2 43729 #### [facility],[address] [place] [address] GFR/1.73 sq M.predicted among non-blacks MDRD (S/P/Bld) [Vol rate/Area] mL/min/{1.73_m2} Normal 60 - 999 [facility] Comment on above: Performed By: #### 2 18149 #### [facility],[address] [place] [address] Result Comment: ACCO RDING TO THE NATIONAL KIDNEY DISEASE EDUCATION PROGRAM(NKDE), A NORMAL eGFR IS A VALUE GREATER THAN OR EQUAL TO 60 ML/MIN/1.73 SQ METERS. CHRONIC KIDNEY DISEASE: <60mL/MIN/1.73 SQ METERS KIDNEY FAILURE: <15mL/MIN/1.73 SQ METERS THIS TEST SHOULD ONLY BE USED FOR PATIENTS 18 YEARS OF AGE AND OLDER. Globulin (S) [Mass/Vol] 4.1 g/dL High 1.5 - 3.8 [facility] Comment on above: Performed By: #### 2 98270 #### [facility],[address] [place] [address] 67573 Glucose [Mass/Vol] 104 mg/dL Normal 74 - 106 [facility] Comment on above: Performed By: #### 2 84499 #### [address] [address] Potassium [Moles/Vol] 3.7 mmol/L Normal 3.5 - 5.1 [facility] Comment on above: Performed By: #### 2 63747 #### [address] [address] Protein [Mass/Vol] 7.9 g/dL Normal 6.4 - 8.2 [facility] Comment on above: Performed By: #### 2 94173 #### [address] [address] Sodium [Moles/Vol] 133 mmol/L Low 136 - 145 [facility] Comment on above: Performed By: #### 2 87705 #### [facility],[address] [place] [address] 25294 Urea nitrogen [Mass/Vol] 6 mg/dL Low 7 - 18 [facility] Comment on above: Performed By: #### 2 52066 #### [address] [address] CORONAVIRUS (SARS) ANTIGEN T ESTon 02-16-2021 EXTERNAL QC DONE? YES Normal [facility] Comment on above: Performed By: #### 2 18388 #### [address] [address] INTERNAL CONTROL PASS Normal [facility] Comment on above: Performed By: #### 2 26587 #### [facility],[address] [place] [address] SARS ANTIGEN Positive Critically abnormal NORMAL: NEGATIVE [facility] Comment on above: Result Comment: { CA LLED TO DR. LOCKWOOD @0102/ADL { READ BACK BY DR. LOCKWOOD RA@0055 Performed By: #### 2 20672 #### [facility],[address] [place] [address] SEND TO IC? YES Normal [facility] Comment on above: Result Comment: SARS -CoV-2 THIS TEST IS BEING USED UNDER THE FDA EUA PROCEDURE. THIS ASSAY HAS BEEN VALIDATED AT [facility] FOR USE WITH NASAL AND NASOPHARYNGEAL SWAB SPECIMENS. INTERPRETIVE DATA TEST RESULTS SHOULD ALWAYS BE CONSIDERED IN THE CONTEXT OF CLINICAL OBSERVATIONS AND EPIDEMIOLOGICAL DATA IN MAKING FINAL DIAGNOSIS AND PATIENT MANAGEMENT DECISIONS. PATIENT MANAGEMENT SHOULD FOLLOW CURRENT CDC GUIDELINES. THE SHAUNA SARS ANTIGEN CARI DOES NOT DIFFERENTIATE BETWEEN SARS-CoV & SARS-CoV-2. A POSITIVE TEST RESULT INDICATES THE PRESENCE OF SARS-CoV-2 NUCLEOCAPSID PROTEIN ANTIGEN, AND THE PATIENT IS INFECTED WITH THE VIRUS AND PRESUMED TO BE CONTAGIOUS. A NEGATIVE TEST RESULT FOR THIS TEST MEANS THAT SARS-CoV-2 NUCLEOCAPSID PROTEIN ANTIGEN WAS NOT PRESENT IN THE SPECIMEN ABOVE THE LIMIT OF DETECTION. HOWEVER, A NEGATIVE RESULT DOES NOT RULE OUT COVID-19 AND SHOULD NOT BE USED THE SOLE BASIS FOR TREATMENT OR PATIENT MANAGEMENT DECISIONS. A NEGATIVE RESULT DOES NOT EXCLUDE THE POSSIBILITY OF COVID-19. NEGATIVE RESULTS, FROM PATIENTS WITH SYMPTOM ONSET BEYOND FIVE DAYS, SHOULD BE TREATED PRESUMPTIVE AND CONFIRMATION WITH A MOLECULAR ASSAY, IF NECESSARY, FOR PATIENT MANAGEMENT, MAY BE PERFORMED. WHEN DIAGNOSTIC TESTING IS NEGATIVE, THE POSSIBLILTY OF A FALSE NEGATIVE RESULT SHOULD BE CONSIDERED IN THE CONTEXT OF A PATIENT'S RECENT EXPOSURES AND THE PRESENCE OF CLINICAL SIGNS AND SYMPTOMS CONSISTENT WITH COVID-19. THE POSSIBILITY OF A FALSE NEGATIVE RESULT SHOULD ESPECIALLY BE CONSIDERED IF THE PATIENT'S RECENT EXPOSURES OR CLINICAL PRESENTATION INDICATE THAT COVID-19 IS LIKELY, AND DIAGNOSTIC TESTS FOR OTHER CAUSES OF ILLNESS (e.g., OTHER RESPIRATORY ILLNESS) ARE NEGATIVE. IF COVID-19 IS STILL SUSPECTED BASED ON EXPOSURE HISTORY TOGETHER WITH OTHER CLINICAL FINDINGS, RE-TESTING SHOULD BE CONSIDERED BY HEALTHCARE PROVIDERS IN CONSULTATION WITH PUBLIC HEALTH AUTHORITIES. Performed By: #### 2 84812 #### [facility],[address] [place] [address] 87432 SERUM QUALon 02-16 EXTERNAL QC DONE? YES Normal [facility] Comment on above: Performed By: #### 2 84794 #### [facility],[address] [place] [address] INTERNAL QC PASS Normal [facility] Comment on above: Performed By: #### 2 34106 #### [facility],[address] [place] [address] SER Negative Normal NEGATIVE [facility] Comment on above: Performed By: #### 2 79180 #### [facility],[address] [place] [address] 33679 URINALYSISon 02-16-2021 Amorphous NONE Normal [facility] Comment on above: Performed By: #### 2 87264 #### [facility],[address] [place] [address] 18870 Bacteria TRACE Normal [facility] Comment on above: Performed By: #### 2 34107 #### [facility],[address] [place] [address] 22879 Bilirubin Ql (U) Negative Normal NORMAL: NEGATIVE [facility] Comment on above: Performed By: #### 2 74855 #### [facility],[address] [place], [place] [id number] Casts NONE Normal [facility] Comment on above: Performed By: #### 2 94069 #### [facility],[address] [place] [address] 31435 Clarity (U) clear Normal NORMAL: CLEAR [facility] Comment on above: Performed By: #### 2 18874 #### [facility],[address] [place], [place] [address] Color (U) p.yel Normal NORMAL: YELLOW [facility] Comment on above: Performed By: #### 2 11977 #### [facility],[address] [place] [address] 44311 Crystals LM Nom (Urine sed) NONE Normal [facility] Comment on above: Performed By: #### 2 41187 #### [facility],[address] [place] [address] 67800 Epi Cells OCC Normal [facility] Comment on above: Performed By: #### 2 31992 #### [facility],[address] [place] [address] 31809 Glucose Ql (U) NORM Normal NORMAL: NORMAL [facility] Comment on above: Performed By: #### 2 36381 #### [facility],[address] [place] [address] 26536 Hemoglobin Ql (U) Negative Normal NORMAL: NEGATIVE [facility] Comment on above: Performed By: #### 2 18451 #### [facility],[address] [place] [address] 44552 Ketone Negative Normal NORMAL: NEGATIVE [facility] Comment on above: Performed By: #### 2 45443 #### [facility],[address] [place] [address] 99802 Leukocytes 25 Abnormal NORMAL: NEGATIVE [facility] Comment on above: Performed By: #### 2 53617 #### [facility],[address] [place] [address] 11793 Mucous NONE Normal [facility] Comment on above: Performed By: #### 2 97040 #### [facility],[address] [place] [address] 42171 Nitrite Ql (U) Negative Normal NORMAL: NEGATIVE [facility] Comment on above: Performed By: #### 2 08505 #### [facility],[address] [place] [address] 19611 pH (U) 6 [pH] Normal NORMAL: 5.0-8.0 [facility] Comment on above: Performed By: #### 2 53279 #### [facility],[address] [place] [address] 03194 Protein Ql (U) Negative Normal NORMAL: NEGATIVE [facility] Comment on above: Performed By: #### 2 59317 #### [facility],[address] [place] [address] 50998 Rbc NONE Normal 0-3/hpf [facility] Comment on above: Performed By: #### 2 50652 #### [facility],[address] [place] [address] Sp [place] 1.005 Low NORMAL: 1.010-1.030 [facility] Comment on above: Performed By: #### 2 65810 #### [facility],[address] [place] [address] Specimen Type Clean catch Normal [facility] Comment on above: Performed By: #### 2 05672 #### [facility],[address] [place], [place] [address] Urinalysis dipstick W Reflex Microscopic panel (U) SEE BELOW Normal [facility] Comment on above: Result Comment: MICR OSCOPIC Performed By: #### 2 55718 #### [facility],[address] [place], [place] [id number] Urobilinog NORM Normal NORMAL: NORMAL [facility] Comment on above: Performed By: #### 2 15886 #### [facility],[address] [place], [place] [address] Wbc RARE Normal 0-5/hpf [facility] Comment on above: Performed By: #### 2 53948 #### [facility],[address] [place] [address] 50824 Yeast NONE Normal [facility] Comment on above: Performed By: #### 2 66547 #### [facility],[address] [place], [place] [address] HCG,BETA-QUANTon 10-10-2019 HCG,BETA-QUANT <2 Normal [facility] Comment on above: Result Comment: Low- level positive HCG results can be seen in early , in rigo- or post-menopausal females due to normal pituitary HCG production, or with analytic interference. Repeat testing in 48-72 hours can aid in assessing for as results should double in this time period. FSH measurement is recommended in rigo- or post-menopausal females as concurrent elevation of FSH can support pituitary production as the source of the HCG elevation. . Total HCG measurement is performed using the Tab[employer] Dawna Access Immunoassay which detects intact HCG and free beta HCG subunit. This test is not indicated for use as a tumor marker. HCG testing is performed using a different test methodology at [facility] than other [facility] hospitals. Direct result comparison should only be made within the same method. REF VALUES NON FEMALE <5 MALES <5 Performed By: #### H CGQU #### [place] [address] [place] [address] DIRECTOR SOFTWARE DEVELOPMENT - Office Visiton 09-19 DIRECTOR SOFTWARE DEVELOPMENT - Office Visit Chief Complaint Patient is here due to amenorrhea. LMP: 07/04/2019. Patient states she has taken home test and all are negative. Patient also states she was seen by Dr. Nissa Gan at [facility] in [place] and she diagnosed her with PCOS. History of Present IllnessPatient presents stating she has not had a menstrual flow since June. She states that she was diagnosed with polycystic ovary syndrome within the last year. She has had regular monthly cycles for the last year up until June. Denies any changes in activity or diet. She denies any bowel or bladder problems. Denies any breast problems. Review of Systems Review of Systems: Constitutional: No fever or chills Respiratory: No shortness of breath, or cough Cardiovascular: No chest pain or syncope Breasts: No breast pain, no masses, no nipple discharge Gastrointestinal: No nausea, vomiting, or diarrhea, no abdominal pain Genitourinary: No dysuria or frequency Gynecology: Negative except as noted in history of present illness All other: All other systems reviewed and negative for complaint Past Medical History History of miscarriage (V13.29) (Z87.59) 10/2014 History of Mild dysplasia of cervix (622.11) (N87.0) 2014 History of Normal vaginal delivery (650) (O80) 09/03/2015_40weeks 3days_Female_6# 2oz History of Pap test, as part of routine gynecological examination (V76.2) (Z01.419) 06/11/2016: Negative 12/17/2014: LGSIL, Mild Dysplasia Surgical History History of Colposcopy 04/05/2015: no biopsy done, pt 11/12/2015: 12 o'clock biopsy- HPV, 1 o'clock biopsy- LGSIL, ECC- scant unremarkable endocervical and endometrial tissue Family History No pertinent family history No pertinent family history Family history of cardiac disorder (V17.49) (Z82.49) Family history of diabetes mellitus (V18.0) (Z83.3) Social History No alcohol use No illicit drug use Non-smoker (V49.89) (Z78.9) Sexually active Allergies No Known Drug Allergies Recorded By: Nicole Flowers; 10/04/2019 4:04:02 PM Vitals Vital Signs Recorded: [id number] 11:34AM Xavkogmfeee39.1 F Izkmhyeh447 Mpuntnbwl46 Height5 ft 5 in Ffbfqt633.9 kg BMI Razzkksuqq62.89 BSA Calculated2.43 [id number] Physical Exam General: No acute distress Eye: Intraocular movements are intact HEENT: Normocephalic Respiratory: Respirations are nonlabored Gastrointestinal: Nondistended Musculoskeletal: Normal range of motion Neurologic: Alert and oriented x3 Psychiatric: Cooperative, appropriate mood and affect. Diagnoses/Problems Amenorrhea (626.0) (N91.2) History of PCOS (V13.29) (Z87.42) Orders HCG, Beta Quantitative; Specimen Source:Blood (BLD); Status:Active; Requested for:[id number]; Perform:Lab Services - Lab To Draw (Blood Test); Due:08Jan2020;Ordered ; For:Amenorrhea; Ordered By:Daniel Diaz; Provider Impressions 1. Amenorrhea 2. History of PCOS Will obtain a serum hCG and she will be called with results. If the test is negative will prescribe progesterone for withdrawal bleed. Follow-up in 2 months for annual exam.. 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 [facility] Comment on above: Result Comment: Nega tive for This test was developed and its performance characteristics determined by [facility]'s [facility] [place]. This test has been authorized by FDA under an Emergency Use Authorization (EUA). This test has been validated in accordance with the FDA's Guidance Document Policy for Diagnostics Testing in Laboratories Certified to Perform High Complexity Testing under CLIA prior to Emergency use Authorization for Coronavirus Disease 2019 during the Public Health Emergency issued on May 19, 2019. COVID19 (SARS This test was developed and its performance characteristics determined by [facility] [place]. This test has been authorized by FDA under an Emergency Use Authorization (EUA). This test has been validated in accordance with the FDA's Guidance Document Policy for Diagnostics Testing in Laboratories Certified to Perform High Complexity Testing under CLIA prior to Emergency use Authorization for Coronavirus Disease 2019 during the Public Health Emergency issued on May 19, 2019. CoV2) by PCR. This test was developed and its performance characteristics determined by [facility] [place]. This test has been authorized by FDA under an Emergency Use Authorization (EUA). This test has been validated in accordance with the FDA's Guidance Document Policy for Diagnostics Testing in Laboratories Certified to Perform High Complexity Testing under CLIA prior to Emergency use Authorization for Coronavirus Disease 2019 during the Public Health Emergency issued on May 19, 2019. 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 Froylan Fischer MD Work Phone: [facility] 10-29-2024 08:23-0400 Body mass index (BMI) [Ratio] 53.7 kg/m2 Dr. Froylan Fischer MD Work Phone: [facility] 10-29-2024 08:23-0400 Body temperature 99.8 [degF] Dr. Froylan Fischer MD Work Phone: [facility] 10-29-2024 08:23-0400 Body weight 151.[address] Froylan Fischer MD Work Phone: [facility] 10-29-2024 08:23-0400 Diastolic blood pressure 76 mm[Hg] Dr. Froylan Fischer MD Work Phone: [facility] 10-29-2024 08:23-0400 Heart rate 95 /min Dr. Froylan Fischer MD Work Phone: [facility] 10-29-2024 08:23-0400 Respiratory rate 18 /min Dr. Froylan Fischer MD Work Phone: [facility] 10-29-2024 08:23-0400 SaO2% (BldA) [Mass fraction] 98 % Dr. Froylan Fischer MD Work Phone: [facility] 10-29-2024 08:23-0400 Systolic blood pressure 122 mm[Hg] Dr. Froylan Fischer MD Work Phone: [facility] 06-18-2024 08:25-0400 Diastolic blood pressure 84 mm[Hg] Maritza Carrera MD Work Phone: [facility] 06-18-2024 08:25-0400 Systolic blood pressure 138 mm[Hg] Maritza Carrera MD Work Phone: [facility] 06-18-2024 08:05-0400 Body height 162.6 cm Maritza Carrera MD Work Phone: [facility] 06-18-2024 08:05-0400 Body mass index (BMI) [Ratio] 54.76 kg/m2 Maritza Carrera MD Work Phone: [facility] 06-18-2024 08:05-0400 Body temperature 98.6 [degF] Maritza Carrera MD Work Phone: [facility] 06-18-2024 08:05-0400 Body weight 144.7 kg Maritza Carrera MD Work Phone: [facility] 06-18-2024 08:05-0400 Heart rate 82 /min Maritza Carrera MD Work Phone: [facility] 06-18-2024 08:05-0400 Respiratory rate 16 /min Maritza Carrera MD Work Phone: [facility] 06-18-2024 08:05-0400 SaO2% (BldA) [Mass fraction] 97 % Maritza Carrera MD Work Phone: [facility] 10-07-2023 10:55-0400 Diastolic blood pressure 98 mm[Hg] Maritza Carrera MD Work Phone: [facility] 10-07-2023 10:55-0400 Systolic blood pressure 150 mm[Hg] Maritza Carrera MD Work Phone: [facility] 10-07-2023 10:28-0400 Body height 160 cm Maritza Carrera MD Work Phone: [facility] 10-07-2023 10:28-0400 Body mass index (BMI) [Ratio] 60.58 kg/m2 Maritza Carrera MD Work Phone: [facility] 10-07-2023 10:28-0400 Body temperature 98.8 [degF] Maritza Carrera MD Work Phone: [facility] 10-07-2023 10:28-0400 Body weight 155.13 kg Maritza Carrera MD Work Phone: [facility] 10-07-2023 10:28-0400 Heart rate 76 /min Maritza Carrera MD Work Phone: [facility] 10-07-2023 10:28-0400 Respiratory rate 16 /min Maritza Carrera MD Work Phone: [facility] 10-07-2023 10:28-0400 SaO2% (BldA) [Mass fraction] 96 % Maritza Carrera MD Work Phone: [facility] 09-10-2022 09:30-0400 Diastolic blood pressure 88 mm[Hg] Maritza Carrera MD Work Phone: [facility] 09-10-2022 09:30-0400 Systolic blood pressure 140 mm[Hg] Maritza Carrera MD Work Phone: [facility] 09-10-2022 09:05-0400 Heart rate 83 /min Maritza Carrera MD Work Phone: [facility] 09-10-2022 09:05-0400 Respiratory rate 16 /min Maritza Carrera MD Work Phone: [facility] 09-10-2022 09:05-0400 SaO2% (BldA) [Mass fraction] 98 % Maritza Carrera MD Work Phone: [facility] 09-10-2022 09:02-0400 Body height 162.6 cm Maritza Carrera MD Work Phone: [facility] 09-10-2022 09:02-0400 Body mass index (BMI) [Ratio] 56.18 kg/m2 Maritza Carrera MD Work Phone: [facility] 09-10-2022 09:02-0400 Body temperature 98.4 [degF] Maritza Carrera MD Work Phone: [facility] 09-10-2022 09:02-0400 Body weight 148.46 kg Maritza Carrera MD Work Phone: [facility] 05-28-2022 09:54-0500 Body height 162.6 cm Maritza Carrera MD Work Phone: [facility] 05-28-2022 09:54-0500 Body mass index (BMI) [Ratio] 56.64 kg/m2 Maritza Carrera MD Work Phone: [facility] 05-28-2022 09:54-0500 Body temperature 97.81 [degF] Maritza Carrera MD Work Phone: [facility] 05-28-2022 09:54-0500 Body weight 149.69 kg Maritza Carrera MD Work Phone: [facility] 05-28-2022 09:54-0500 Diastolic blood pressure 79 mm[Hg] Maritza Carrera MD Work Phone: [facility] 05-28-2022 09:54-0500 Heart rate 79 /min Maritza Carrera MD Work Phone: [facility] 05-28-2022 09:54-0500 Respiratory rate 16 /min Maritza Carrera MD Work Phone: [facility] 05-28-2022 09:54-0500 SaO2% (BldA) [Mass fraction] 98 % Maritza Carrera MD Work Phone: [facility] 05-28-2022 09:54-0500 Systolic blood pressure 126 mm[Hg] Maritza Carrera MD Work Phone: [facility] Encounters Encounter Date Encounter Type Care Provider Facility Start: 10-29-2024 End: 10-29-2024 Patient encounter procedure Jos Pierre [facility] Work Phone: Start: 10-29-2024 End: 10-29-[address] Froylan Fischer MD Work Phone: [facility] Start: 09-06-2024 End: 09-06-2024 Admission to establishment MARLEN PERES DO [facility] Start: 09-06-2024 End: 09-06-2024 ambulatory MARITZA CARRERA MD Facility:[facility] Start: 08-09-2024 ambulatory MARLEN ZAVALA acility:[facility] Start: 07-30-2024 End: 07-30-2024 ambulatory MARLEN PERES Facility:[facility] Start: 07-30-2024 End: 07-30-2024 Patient encounter procedure NONE [facility] Start: 07-10-2024 End: 07-10-2024 ambulatory RL LEYVA Facility:[facility] Start: 07-10-2024 End: 07-10-2024 Patient encounter procedure RL LEYVA [facility] Start: 06-19-2024 End: 08-19-2024 Follow-up encounter Maritza Carrera MD Work Phone: [facility] Comment on above: Basic Metabolic Pane l Start: 06-18-2024 End: 06-18-2024 Office outpatient visit 15 minutes Maritza Carrera MD Work Phone: [facility] Comment on above: Essential (primary) hypertension (Primary Dx) Start: 06-18-2024 End: 06-18-2024 ambulatory [facility] Start: 04-26-2024 End: 04-26-2024 Emergency department patient visit MAURIZIO CABALLERO [facility] Start: 04-12-2024 End: 04-12-2024 ambulatory Efewongbe Oleghe Facility:[facility] Start: 04-12-2024 End: 04-12-2024 ambulatory Efewongbe Oleghe Facility:[facility] Start: 03-30-2024 End: 03-30-2024 ambulatory Efewongbe Oleghe Facility:[facility] Start: 02-02-2024 End: 02-02-2024 ambulatory Efewongbe Oleghe Facility:[facility] Start: 12-23-2023 End: 12-23-2023 ambulatory [facility] Start: 12-19-2023 End: 12-19-2023 Emergency department patient visit JOHNY PHAN [facility] Start: 10-07-2023 End: 10-11-2023 ambulatory [facility] Start: 10-07-2023 End: 10-11-2023 Encounter for general adult medical examination without abnormal findings [facility] Start: 10-07-2023 End: 10-07-2023 Patient encounter status Maritza Carrera MD Work Phone: [facility] Work Phone: Start: 10-07-2023 End: 10-07-2023 Periodic preventive med est patient 18-39 yrs Maritza Carrera MD Work Phone: [facility] Comment on above: General medical exam (Primary Dx); Iron deficiency anemia due to chronic blood loss; Essential (primary) hypertension; Dyspepsia; Abnormal uterine bleeding Start: 10-07-2023 End: 10-07-2023 ambulatory [facility] Start: 10-07-2023 End: 10-07-2023 Encounter for general adult medical examination without abnormal findings [facility] Start: 08-29-2023 End: 08-29-2023 Emergency department patient visit [facility] Start: 09-10-2022 End: 09-10-2022 Office outpatient visit 15 minutes Maritza Carrera MD Work Phone: [facility] Comment on above: Generalized anxiety disorder (Primary Dx) Start: 08-19-2022 ambulatory Nicole NIELSON-S [facility] Start: 05-28-2022 End: 05-28-2022 Patient encounter status Maritza Carrera MD Work Phone: [facility] Start: 05-28-2022 End: 05-28-2022 Periodic preventive med est patient 18-39 yrs Maritza Carrera MD Work Phone: [facility] Comment on above: General medical exam (Primary Dx); Environmental allergies Start: 05-24-2022 ambulatory [facility]:9 4 Start: 03-14-2022 End: 03-14-2022 [facility] Start: 12-25-2021 End: 12-25-[facility]21 [facility] Start: 02-26-2021 End: 02-26-2021 Emergency department patient visit DR KUSH MORENO [facility] Start: 02-16-2021 End: 02-16-2021 Emergency department patient visit XAVIER VANESSA [facility] Start: 12-11-2016 End: 12-11-2016 Ambulatory Daniel Diaz Facility:[facility] Procedures Date Procedure Procedure Detail Performing Clinician Start: 07-05-2022 Adult depression scr eening assessment Nicole OWEN SERVICE DESK TECHNICIAN-S Start: 05-28-2022 Adult depression scr eening assessment Maritza Carrera MD Work Phone: Start: 02-16-2021 Urinalysis XAVIER HERNANDEZ Comment on above: Result Comment: URIN ALYSIS Performed By: #### [id number] #### [facility],[address] [place] [address] Start: 09-04-2018 Microscopic observat ion [Identifier] in Cervix by Cyto stain Nicole Marr CHILD ABUSE WORKER SERVICE DESK TECHNICIAN-S Plan of Treatment Date Care Activity Detail Author Start: 05-04-2027 Tetanus vaccination Tetanus: Every [address] [facility] Start: 06-18-2025 Depression screening using PHQ-9 (Patient Health Questionnaire 9) score Depression Screening/Follow-Up (PHQ-2/9) [facility] Start: 12-12-2024 End: 12-12-2024 Patient encounter procedure 12/12/2024 9:15 AM EDT Office Visit [facility] [address] [place] [id number] Maritza Carrera MD [address] [address] [facility] Start: 09-01-2025 Influenza vaccination Influenz a Vaccine (Season Ended) [facility] Start: 10-06-2024 History and physical examination, annual for health maintenance Wellness Visit [facility] Start: 03-23-2024 Depression screening using PHQ-9 (Patient Health Questionnaire 9) score Depression Screening/Follow-Up (PHQ-2/9) [facility] Start: 12-23-2023 End: 12-23-2023 Patient encounter procedure 12/23/2023 11:45 AM EDT Office Visit [facility] [address] [place] [address] Maritza Carrera MD [address] [id number] [facility] Start: 11-20-2023 COVID-19 Vaccine ( season) COVID-19 Vaccine ( season) [facility] Start: 11-20-2023 Influenza vaccination Influenza Vacc ine (#1) [facility] Start: 07-06-2023 Depression screening using PHQ-9 (Patient Health Questionnaire 9) score Depression Screening (PHQ-2/9) [facility] Start: 05-29-2023 Depression screening using PHQ-9 (Patient Health Questionnaire 9) score Depression Screening (PHQ-2/9) [facility] Start: 05-29-2023 History and physical examination, annual for health maintenance Wellness Visit [facility] Start: 11-19-2022 COVID-19 Vaccine ( season) COVID-19 Vaccine ( season) [facility] Start: 11-19-2022 Influenza vaccination Sequenti al Influenza Vaccine (Season Ended) [facility] Start: 09-24-2022 End: 09-24-2022 Patient encounter procedure 09/24/2022 7:30 AM EDT Procedure [facility] [employer] [employer]OP[employer] - [facility] Derrick Bagley [address] [place] [id number] Nadya Mendez, M[employer] TE[employer]ER [address] [place] [address] [facility] DIRECTOR SOFTWARE DEVELOPMENT - [facility] Start: 09-10-2022 End: 09-10-2022 Patient encounter procedure 09/10/2022 9:15 AM EDT Office Visit [facility] [address] [place] [address] Maritza Carrera MD [address] [address] [facility] Start: 05-31-2022 End: 05-31-2022 Patient encounter procedure 05/31/2022 Office Visit Obstetrics and Gynecology Nadya Delarosa MD [facility] [place] [place] [phone] [facility] DIRECTOR SOFTWARE DEVELOPMENT - [facility] Start: 11-19-2021 Influenza vaccination Sequenti al Influenza Vaccine (#1) [facility] Start: 09-04-2021 Screening for malign ant neoplasm of cervix Pap Smear [facility] Start: 10-04-2014 Pneumococcal Vaccine : Ped or At-Risk (1 of 2 - PCV) Pneumococcal Vaccine: Ped or At-Risk (1 of 2 - PCV) [facility] Start: 10-04-2013 Hepatitis C screening Hepatitis C Sc reening [facility] Start: 10-04-2010 HIV screening HIV Screening [facility] Start: 10-04-2001 Pneumococcal Vaccine : Ped or At-Risk (1 - PCV) Pneumococcal Vaccine: Ped or At-Risk (1 - PCV) [facility] Start: 10-04-2001 Pneumococcal Vaccine : Ped or At-Risk (1 of 2 - PCV) Pneumococcal Vaccine: Ped or At-Risk (1 of 2 - PCV) [facility] Start: 04-06-1996 COVID-19 Vaccine (#1) COVID-19 Vacci ne (#1) [facility] Start: 1995 Screening for malign ant neoplasm of cervix Pap Smear [facility] End: 06-18-2025 Basic metabolic 2000 panel - Serum or Plasma Basic Metabolic Panel Lab Routine Essential (primary) hypertension 1 Occurrences starting 06/18/2024 until 06/18/2025 [facility] Work Phone: Comment on above: 1 Occurrences starti ng 06/18/2024 until 06/18/2025 Immunizations Immunization Date Immunization Notes Care Provider Fa cility 05-01-2019 influenza virus vacc ine, unspecified formulation Maritza Carrera MD Work Phone: [facility] 05-04-2017 tetanus toxoid, redu cj diphtheria toxoid, and acellular pertussis vaccine, adsorbed Maritza Carrera MD Work Phone: [facility] 10-31-2012 tetanus toxoid, redu cj diphtheria toxoid, and acellular pertussis vaccine, adsorbed Maritza Carrera MD Work Phone: [facility] 10-31-2012 varicella virus vaccine Annette Carrera MD Work Phone: [facility] 06-20-2006 measles, mumps and r ubella virus vaccine Maritza Carrera MD Work Phone: [facility] 06-20-2006 poliovirus vaccine, inactivated Maritza Carrera MD Work Phone: [facility] 04-24-1997 hepatitis B vaccine, pediatric or pediatric/adolescent dosage Maritza Carrera MD Work Phone: [facility] 04-24-1997 measles, mumps and r ubella virus vaccine Maritza Carrera MD Work Phone: [facility] 10-17-1996 diphtheria, tetanus toxoids and acellular pertussis vaccine, unspecified formulation Maritza Carrera MD Work Phone: [facility] 10-17-1996 haemophilus influenz ae type b vaccine, conjugate unspecified formulation Maritza Carrera MD Work Phone: [facility] 04-12-1996 DTP-Haemophilus infl uenzae type b conjugate vaccine Maritza Carrera MD Work Phone: [facility] 04-12-1996 trivalent poliovirus vaccine, live, oral Maritza Carrera MD Work Phone: [facility] 01-31-1996 DTP-Haemophilus infl uenzae type b conjugate vaccine Maritza Carrera MD Work Phone: [facility] 01-31-1996 trivalent poliovirus vaccine, live, oral Maritza Carrera MD Work Phone: [facility] 1995 DTP-Haemophilus infl uenzae type b conjugate vaccine Maritza Carrera MD Work Phone: [facility] 1995 hepatitis B vaccine, pediatric or pediatric/adolescent dosage Maritza Carrera MD Work Phone: [facility] 1995 trivalent poliovirus vaccine, live, oral Maritza Carrera MD Work Phone: [facility] 1995 hepatitis B vaccine, pediatric or pediatric/adolescent dosage Maritza Carrera MD Work Phone: [facility] Payers Date Payer Category Payer Self-pay 2023 Medicaid (Managed Care) [facility] MEDICA[facility] [id number] 2023 Medicaid [id number] 2016 Medicaid [id number] 2016 Unknown [id number] 2016 Unknown 1995 Unknown [id number] 2.16.840.1.978426.3.579.2. 65 1995 Unknown [id number] 2.16.840.1.876012.3.579.2. 651 1995 Unknown [id number] 2.16.840.1.849902.3.579.2. 651 1995 Unknown [id number] 2.16.840.1.374622.3.579.2. 902 1995 Unknown [id number] 2.16.840.1.201585.3.579.2. 356 1995 Unknown [id number] 2.16.840.1.062928.3.579.2. 903 1995 Unknown [id number] 2.16.840.1.368386.3.579.2. 902 1995 Unknown [id number] 2.16.840.1.099125.3.579.2. 902 1995 Unknown [id number] 2.16.840.1.582319.3.579.2. 902 1995 Unknown [id number] 2.840.1.523038.3.579.2. 903 1995 Unknown [id number] 2.16.840.1.777970.3.579.2. 903 1995 Unknown [id number] 2.16840.1.599859.3.579.2. 903 1995 Unknown [id number] 2.16.840.1.672738.3.579.2. 627 1995 Unknown [id number] 2.16.840.1.116552.3.579.2. 627 1995 Unknown [id number] 2.16.840.1.873557.3.579.2. 627 1995 Unknown [id number] 2.16.840.1.983632.3.579.2. 627 Unknown [id number] 2.16.840.1.642729.3.579.2. 462 Unknown [id number] 2.16.840.1.957962.3.579.2. 462 Unknown [id number] 2.16.840.1.588709.3.579.2. 462 Unknown [id number] 2.16.840.1.305461.3.579.2. 462 Unknown [id number] 2..840.1.490807.3.579.2. 462 Unknown [id number] 2.16.840.1.834346.3.579.2. 462 Social History Date Type Detail Facility Start: 05-28-2022 Tobacco smoking status NHIS Occasional tobacco smoker [facility] History of tobacco use [facility]arette [facility] Start: 05-28-2022 End: 06-18-2024 Tobacco use and exposure Smokeless tobacco non-user [facility] Start: 05-29-2022 Alcohol intake Current drinker of alcohol (finding) [facility] Start: 05-20-[address] [facility] Start: 1995 Sex Assigned At Not on file [facility] Start: 05-18-2022 End: 08-13-2022 Exposure to SARS-CoV-2 (event) Not sure [facility] Start: 06-19-2022 Tobacco smoking status NHIS Ex-smoker [facility] History of tobacco use [facility] Start: 08-13-2022 End: 06-18-2024 Alcohol intake Ex-drinker (finding) [facility] Start: 08-13-2022 End: 06-18-2024 History of Social function [facility] Start: 08-13-2022 End: 06-18-[address] [facility] Adult Depression Screening Assessment 20 [facility] Start: 05-25-2022 Gender identity Identifies as female gender (finding) [facility] Start: 05-25-2022 Sexual orientation Heterosexual (finding) [facility] Start: 06-03-2023 Tobacco smoking status NHIS Smokes tobacco daily [facility] How hard is it for y ou to pay for the very basics like food, housing, medical care, and heating Not very hard [facility] (I/We) worried whefadi er (my/our) food would run out before (I/we) got money to buy more. Never true [facility] Start: 04-12-2024 End: 06-18-2024 Tobacco smoking status NHIS Never smoked tobacco [facility] How hard is it for y ou to pay for the very basics like food, housing, medical care, and heating Somewhat hard [facility] Tobacco smoking status [facility] Start: 1995 Sex Assigned At Female [facility] Start: 07-06-2024 Sex Female (finding) [facility] Tobacco Nicotine Use: Va ping Product in Last 90 Days. Type: Electronic Cigarettes (Vaping). Number of years: 6. [facility] Goals Date Patient Goal Desired Activity /State Personal health goal Comment on above: Formatting of this n ote might be different from the original. High blood pressure makes your heart work too hard. It can cause heart attack, stroke and kidney disease. Clinical Notes 05-28-2022 to 07-10-2024 Note Date & Type Note Facility 07-10-2024 Note Exam Date Time Procedure Performing Provider Status 07/10/24 8:10 AM US Pelvis Non-OB W/Transvaginal FERNANDEZ REED DO; Auth (Verified) [id number] ORIGINAL EXAMINATION: TRANSVAGINAL PELVIC ULTRASOUND 07/10/2024 TECHNIQUE: Transvaginal pelvic ultrasound was performed. COMPARISON: None HISTORY: ORDERING SYSTEM PROVIDED HISTORY: Reason for Exam: PELVIC AND PERINEAL PAIN All images are recorded and archived. FINDINGS: Measurements: Uterus: 7.3 x 4.3 x 4.7 cm Endometrial stripe: 5.0 mm Right Ovary:3.0 x 3.0 x 1.8 cm Left Ovary: 2.8 x 2.3 x 2.7 cm Ultrasound Findings: Uterus: Uterus demonstrates normal myometrial echotexture. Endometrial stripe: Endometrial stripe is within normal limits. Right Ovary: Right ovary is within normal limits. Left Ovary: Left ovary is within normal limits. Free Fluid: No evidence of free fluid. IMPRESSION: Unremarkable pelvic ultrasound. Interpreted by: Fernandez Reed DO Preliminary Report By: Fernandez Reed DO Electronically signed By Fernandez Reed DO Dictated Date: 07/10/2024 8:52:34 AM Prelim Date: 07/10/2024 8:55:59 AM Sign Date: 07/10/2024 8:55:59 AM Ordering Provider: RL LEYVA [facility]03-31-2025 NoteSubjective Patient ID: Rachael Pope is a 28 y.o. female. Pt stopped her lotrel - said her bp was going too low - says at home getting 120/80 at home - does get about once week with increase to about 140 range Pt with increased stress levels at home - but does not wish to do any treatments states that she is handling things well The following portions of the patient's history were reviewed and updated as appropriate: allergies, current medications, past family history, past medical history, past social history, past surgical history, and problem list. Review of Systems Constitutional: Negative for chills, diaphoresis and fever. HENT: Negative for congestion and sinus pain. Eyes: Negative for redness. Respiratory: Negative for cough, shortness of breath and wheezing. Cardiovascular: Negative for chest pain. Gastrointestinal: Negative for diarrhea, nausea and vomiting. Endocrine: Negative for polydipsia. Genitourinary: Negative for frequency and hematuria. Musculoskeletal: Negative for back pain. Neurological: Negative for weakness and headaches. Psychiatric/Behavioral: Negative for confusion. Objective Physical Exam Vitals reviewed. Constitutional: General: She is awake. Appearance: Normal appearance. She is well-developed. She is obese. HENT: Head: Normocephalic and atraumatic. Nose: Nose normal. Eyes: General: Lids are normal. Extraocular Movements: Extraocular movements intact. Pupils: Pupils are equal, round, and reactive to light. Cardiovascular: Rate and Rhythm: Normal rate and regular rhythm. Heart sounds: S1 normal and S2 normal. No murmur heard. No friction rub. No gallop. Pulmonary: Effort: Pulmonary effort is normal. No tachypnea. Breath sounds: Normal breath sounds. No stridor or decreased air movement. No wheezing, rhonchi or rales. Neurological: Mental Status: She is alert. Gait: Gait is intact. Psychiatric: Behavior: Behavior is cooperative. Assessment/Plan: Diagnoses and all orders for this visit: Essential (primary) hypertension - hydroCHLOROthiazide (HYDRODIURIL) 25 MG tablet; Take 1 (one) tablet (25 mg total) by mouth daily . - Basic Metabolic Panel; Future Her blood pressure does seem to be normal in office today she does appear to have some element of whitecoat hypertension she is going to bring her blood pressure cuff in with her next time when she comes We also discussed that if she ends up having difficulties in the future with medications or any concerns to let us know before making any changes at home We discussed anxiety and stress levels offered treatment options patient declines at this point She is also losing weight she is only continue to try and decrease her calories My ongoing relationship with Rachael Pope requires continued responsibility and cognitive effort of being the focal point for all services related to chronic condition(s). Maritza Carrera M.D. For any new medications prescribed today, patient was educated about indications for the medication, how to take the medication and potential side effects of the medications. AUTHENTICATED BY MARITZA CARRERA, ON 06/18/2024 08:36:02[facility] [id number] History of Present illness Narrative* Maritza Carrera MD - 06/18/2024 8:16 AM EDT Images from the original note were not included. Subjective Patient ID: Rachael Pope is a 28 y.o. female. Pt stopped her lotrel - said her bp was going too low - says at home getting 120/80 at home - does get about once week with increase to about 140 range Pt with increased stress levels at home - but does not wish to do any treatments states that she ishandling things well The following portions of the patient's history were reviewed and updated as appropriate: allergies, current medications, past family history, past medical history, past social history, past surgicalhistory, and problem list. Review of Systems Constitutional: Negative for chills, diaphoresis and fever. HENT: Negative for congestion and sinus pain. Eyes: Negative for redness. Respiratory: Negative for cough, shortness of breath and wheezing. Cardiovascular: Negative for chest pain. Gastrointestinal: Negative for diarrhea, nausea and vomiting. Endocrine: Negative for polydipsia. Genitourinary: Negative for frequency and hematuria. Musculoskeletal: Negative for back pain. Neurological: Negative for weakness and headaches. Psychiatric/Behavioral: Negative for confusion. Objective Physical Exam Vitals reviewed. Constitutional: General: She is awake. Appearance: Normal appearance. She is well-developed. She is obese. HENT: Head: Normocephalic and atraumatic. Nose: Nose normal. Eyes: General: Lids are normal. Extraocular Movements: Extraocular movements intact. Pupils: Pupils are equal, round, and reactive to light. Cardiovascular: Rate and Rhythm: Normal rate and regular rhythm. Heart sounds: S1 normal and S2 normal. No murmur heard. No friction rub. No gallop. Pulmonary: Effort: Pulmonary effort is normal. No tachypnea. Breath sounds: Normal breath sounds. No stridor or decreased air movement. No wheezing, rhonchi or rales. Neurological: Mental Status: She is alert. Gait: Gait is intact. Psychiatric: Behavior: Behavior is cooperative. Assessment/Plan: Diagnoses and all orders for this visit: Essential (primary) hypertension - hydroCHLOROthiazide (HYDRODIURIL) 25 MG tablet; Take 1 (one) tablet (25 mg total) by mouth daily . - Basic Metabolic Panel; Future Her blood pressure does seem to be normal in office today she does appear to have some element of whitecoat hypertension she is going to bring her blood pressure cuff in with her next time when she comes We also discussed that if she ends up having difficulties in the future with medications or any concerns to let us know before making any changes at home We discussed anxiety and stress levels offered treatment options patient declines at this point She is also losing weight she is only continue to try and decrease her calories My ongoing relationship with Rachael Pope requires continued responsibility and cognitive effortof being the focal point for all services related to chronic condition(s). Maritza Carrera M.D. For any new medications prescribed today, patient was educated about indications for the medication, how to take the medication and potential side effects of the medications. documented in this [id number] NoteSubjective Patient ID: Rachael Pope is a 28 y.o. female. Just seen in ER for pneumonia - on meds and feeling okay but still not back to normal HTN - still running high Has lost weight - about 18lbs I 3months has not really changed her diet much but is no longer taking the Depo-Provera The following portions of the patient's history were reviewed and updated as appropriate: allergies, current medications, past family history, past medical history, past social history, past surgical history, and problem list. Review of Systems Constitutional: Positive for fatigue. Negative for chills, diaphoresis and fever. HENT: Negative for congestion and sinus pain. Eyes: Negative for redness. Respiratory: Positive for cough. Negative for shortness of breath and wheezing. Cardiovascular: Negative for chest pain. Gastrointestinal: Negative for diarrhea, nausea and vomiting. Endocrine: Negative for polydipsia. Genitourinary: Negative for frequency and hematuria. Musculoskeletal: Negative for back pain. Neurological: Negative for weakness and headaches. Psychiatric/Behavioral: Negative for confusion. Objective Physical Exam Vitals reviewed. Constitutional: General: She is awake. Appearance: Normal appearance. She is well-developed. She is obese. HENT: Head: Normocephalic and atraumatic. Right Ear: Tympanic membrane and ear canal normal. Left Ear: Tympanic membrane and ear canal normal. Nose: Nose normal. Eyes: General: Lids are normal. Extraocular Movements: Extraocular movements intact. Pupils: Pupils are equal, round, and reactive to light. Cardiovascular: Rate and Rhythm: Normal rate and regular rhythm. Heart sounds: S1 normal and S2 normal. No murmur heard. No friction rub. No gallop. Pulmonary: Effort: Pulmonary effort is normal. No tachypnea. Breath sounds: Normal breath sounds. No stridor or decreased air movement. No wheezing, rhonchi or rales. Neurological: Mental Status: She is alert. Gait: Gait is intact. Psychiatric: Behavior: Behavior is cooperative. Assessment/Plan: Diagnoses and all orders for this visit: Essential (primary) hypertension - hydroCHLOROthiazide (HYDRODIURIL) 25 MG tablet; Take 1 (one) tablet (25 mg total) by mouth daily . - amLODIPine-benazepril (LOTREL) 5-10 mg per capsule; Take 1 (one) capsule by mouth daily . Going to add Lotrel she is going to monitor her blood pressure and call us with an update in about 3 months Iron deficiency anemia due to chronic blood loss Continue to monitor has been improving Pneumonia of left lower lobe due to infectious organism She is going to finish medications understands that we will take a couple of weeks to get her symptoms to resolve Morbid obesity with body mass index (BMI) of 40.0 or higher (HCC) She is going to continue to monitor she is going to try and add calorie restrictions and exercise program and if she ends up at a plateau we may consider weight loss medications My ongoing relationship with Rachael Pope requires continued responsibility and cognitive effort of being the focal point for all services related to chronic condition(s). Maritza Carrera M.D. For any new medications prescribed today, patient was educated about indications for the medication, how to take the medication and potential side effects of the medications. AUTHENTICATED BY MARITZA CARRERA, ON 12/23/2023 13:55:04[facility]07-19-2024 NoteSubjective Patient ID: Rachael Pope is a 28 y.o. female. 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 does not think that her pain is related to any CORONER related issue however she states that the pain did seem to resolve after getting her menstrual cycle controlled and now she is starting to have a slight bit of spotting and her pain is starting to come back but she thinks it may be just typical for typical menstrual cramping She stopped taking her anxiety medications and thinks that she is doing well The following portions of the patient's history were reviewed and updated as appropriate: allergies, current medications, past family history, past medical history, past social history, past surgical history, and problem list. Review of Systems Constitutional: Negative for chills and fever. HENT: Negative for congestion, ear pain, hearing loss, sinus pain and sore throat. Eyes: Negative for pain and redness. Respiratory: Negative for chest tightness and shortness of breath. Cardiovascular: Negative for leg swelling. Gastrointestinal: Negative for abdominal pain, constipation, diarrhea, nausea and vomiting. Endocrine: Negative for polydipsia and polyuria. Genitourinary: Positive for pelvic pain and vaginal bleeding. Negative for dysuria and hematuria. Musculoskeletal: Negative for joint swelling. Skin: Negative for rash. Neurological: Negative for dizziness, syncope, numbness and headaches. Psychiatric/Behavioral: Negative for confusion and hallucinations. Objective Physical Exam Vitals reviewed. Constitutional: General: She is not in acute distress. Appearance: Normal appearance. She is obese. HENT: Head: Normocephalic and atraumatic. Right Ear: Tympanic membrane and ear canal normal. Left Ear: Tympanic membrane and ear canal normal. Nose: No congestion or rhinorrhea. Eyes: Extraocular Movements: Extraocular movements intact. Conjunctiva/sclera: Conjunctivae normal. Pupils: Pupils are equal, round, and reactive to light. Cardiovascular: Rate and Rhythm: Normal rate and regular rhythm. Heart sounds: Normal heart sounds. No murmur heard. No friction rub. No gallop. Pulmonary: Effort: No respiratory distress. Breath sounds: Normal breath sounds. No wheezing, rhonchi or rales. Musculoskeletal: Cervical back: Neck supple. No rigidity. Skin: Findings: No rash. Neurological: Mental Status: She is alert. Motor: No weakness. Gait: Gait normal. Psychiatric: Mood and Affect: Mood normal. Assessment/Plan: Diagnoses and all orders for this visit: We are going to update routine lab work today General medical exam - Basic Metabolic Panel; Future - CBC and Differential; Future - Hemoglobin A1c; Future - Hepatic Function Panel; Future - Lipid Panel; Future - TSH; Future Iron deficiency anemia due to chronic blood loss - Iron and TIBC; Future Her iron level was slightly low before we will recheck Essential (primary) hypertension - hydroCHLOROthiazide (HYDRODIURIL) 25 MG tablet; Take 1 (one) tablet (25 mg total) by mouth daily . Going to start treating her blood pressure she will monitor at home Dyspepsia She is going to try [id number] Gas-X see if she can get some improvement Abnormal uterine bleeding Needs to follow closely as she gets farther away from her Depo if her menstrual cycle becomes irregular and her pain increases then would most likely be related We are going to have her follow-up in 3 months we will see how her blood pressure is doing also follow weight loss may consider medications for weight loss if not successful Maritza Carrera M.D. For any new medications prescribed today, patient was educated about indications for the medication, how to take the medication and potential side effects of the medications. AUTHENTICATED BY MARITZA CARRERA, ON 10/07/2023 22:57:42[facility]07-19-2024 History of Present illness Narrative* Maritza Carrera MD - 10/07/2023 10:45 AM EDT Images from the original note were not included. Subjective Patient ID: Rachael Pope is a 28 y.o. female. 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 does not think that her pain is related to any CORONER related issue however she states that the pain did seem to resolve after getting her menstrual cycle controlled andnow she is starting to have a slight bit of spotting and her pain is starting to come back but she thinks it may be just typical for typical menstrual cramping She stopped taking her anxiety medications and thinks that she is doing well The following portions of the patient's history were reviewed and updated as appropriate: allergies, current medications, past family history, past medical history, past social history, past surgicalhistory, and problem list. Review of Systems Constitutional: Negative for chills and fever. HENT: Negative for congestion, ear pain, hearing loss, sinus pain and sore throat. Eyes: Negative for pain and redness. Respiratory: Negative for chest tightness and shortness of breath. Cardiovascular: Negative for leg swelling. Gastrointestinal: Negative for abdominal pain, constipation, diarrhea, nausea and vomiting. Endocrine: Negative for polydipsia and polyuria. Genitourinary: Positive for pelvic pain and vaginal bleeding. Negative for dysuria and hematuria. Musculoskeletal: Negative for joint swelling. Skin: Negative for rash. Neurological: Negative for dizziness, syncope, numbness and headaches. Psychiatric/Behavioral: Negative for confusion and hallucinations. Objective Physical Exam Vitals reviewed. Constitutional: General: She is not in acute distress. Appearance: Normal appearance. She is obese. HENT: Head: Normocephalic and atraumatic. Right Ear: Tympanic membrane and ear canal normal. Left Ear: Tympanic membrane and ear canal normal. Nose: No congestion or rhinorrhea. Eyes: Extraocular Movements: Extraocular movements intact. Conjunctiva/sclera: Conjunctivae normal. Pupils: Pupils are equal, round, and reactive to light. Cardiovascular: Rate and Rhythm: Normal rate and regular rhythm. Heart sounds: Normal heart sounds. No murmur heard. No friction rub. No gallop. Pulmonary: Effort: No respiratory distress. Breath sounds: Normal breath sounds. No wheezing, rhonchi or rales. Musculoskeletal: Cervical back: Neck supple. No rigidity. Skin: Findings: No rash. Neurological: Mental Status: She is alert. Motor: No weakness. Gait: Gait normal. Psychiatric: Mood and Affect: Mood normal. Assessment/Plan: Diagnoses and all orders for this visit: We are going to update routine lab work today General medical exam - Basic Metabolic Panel; Future - CBC and Differential; Future - Hemoglobin A1c; Future - Hepatic Function Panel; Future - Lipid Panel; Future - TSH; Future Iron deficiency anemia due to chronic blood loss - Iron and TIBC; Future Her iron level was slightly low before we will recheck Essential (primary) hypertension - hydroCHLOROthiazide (HYDRODIURIL) 25 MG tablet; Take 1 (one) tablet (25 mg total) by mouth daily . Going to start treating her blood pressure she will monitor at home Dyspepsia She is going to try [id number] Gas-X see if she can get some improvement Abnormal uterine bleeding Needs to follow closely as she gets farther away from her Depo if her menstrual cycle becomes irregular and her pain increases then would most likely be related We are going to have her follow-up in 3 months we will see how her blood pressure is doing also follow weight loss may consider medications for weight loss if not successful Maritza Carrera M.D. For any new medications prescribed today, patient was educated about indications for the medication, how to take the medication and potential side effects of the medications. documented in this [id number] History of Present illness Narrative* Maritza Carrera MD - 09/10/2022 9:27 AM EDT Images from the original note were not included. Subjective Patient ID: Rachael Pope is a 26 y.o. female. Think has seen some relief in anxiey - has not gotten I with counssling yet no side effects Thinks depression mildly better also The following portions of the patient's history were reviewed and updated as appropriate: allergies, current medications, past family history, past medical history, past social history, past surgicalhistory, and problem list. Review of Systems Constitutional: Negative for fever. Respiratory: Negative for shortness of breath. Cardiovascular: Negative for chest pain. Gastrointestinal: Negative for diarrhea, nausea and vomiting. Neurological: Negative for syncope and headaches. Psychiatric/Behavioral: Positive for dysphoric mood. The patient is nervous/anxious. Objective Physical Exam Constitutional: General: She is not in acute distress. Appearance: She is obese. Cardiovascular: Rate and Rhythm: Normal rate and regular rhythm. Heart sounds: No murmur heard. No friction rub. No gallop. Neurological: Mental Status: She is alert. Assessment/Plan: Diagnoses and all orders for this visit: Generalized anxiety disorder We are going to try and help get her set up with counseling she is going to give medications another 2 weeks and call us with an update we may need to increase dose at that time she is also going to monitor her blood pressure at home she does have a cuff and she will let us know readings when she calls Maritza Carrera M.D. For any new medications prescribed today, patient was educated about indications for the medication, how to take the medication and potential side effects of the medications. documented in this [id number] History of Present illness Narrative* LEXIE Ojeda - 08/19/2022 12:13 PM EDT P attempted to reach patient for BH referral from PCP for anxiety however there was no answer adam message stating voicemail box has not been set up yet. Patient does not have a gumihart account atthis time. P will attempt to contact patient again in 1-2 weeks. documented in this [id number] History of Present illness Narrative* Nicole Marr LEXIE NISREEN-Devi - 08/19/2022 12:13 PM EDT [facility] attempted to reach patient for referral from PCP for anxiety however there was no answer adam message stating voicemail box has not been set up yet. Patient does not have a gumih[employer] account atthis time. P will attempt to contact patient again in 1-2 weeks. documented in this [id number] History of Present illness Narrative* Maritza Carrera MD - 05/28/2022 10:02 AM EST Images from the original note were not included. Subjective Patient ID: Rachael Pope is a 26 y.o. female. New patient here - previous Dr. Jacques Currently seeing OB /CORONER - in [place] for her dysmenorrhea issues Has had some issues with chronic laryngitis - says has improved -happens mainly in the wintertime and then resolves in the summer has been persistent she does feel well at this point She has not had a wellness exam in some time The following portions of the patient's history were reviewed and updated as appropriate: allergies, current medications, past family history, past medical history, past social history, past surgicalhistory, and problem list. Review of Systems Constitutional: Negative for chills, diaphoresis and fever. HENT: Negative for congestion and sinus pain. Eyes: Negative for redness. Respiratory: Negative for cough, shortness of breath and wheezing. Cardiovascular: Negative for chest pain. Gastrointestinal: Negative for diarrhea, nausea and vomiting. Endocrine: Negative for polydipsia. Genitourinary: Negative for frequency and hematuria. Musculoskeletal: Negative for back pain. Neurological: Negative for weakness and headaches. Psychiatric/Behavioral: Negative for confusion. Objective Physical Exam Vitals reviewed. Constitutional: General: She is awake. Appearance: Normal appearance. She is well-developed. HENT: Head: Normocephalic and atraumatic. Right Ear: Tympanic membrane and ear canal normal. Left Ear: Tympanic membrane and ear canal normal. Nose: Nose normal. Eyes: General: Lids are normal. Extraocular Movements: Extraocular movements intact. Pupils: Pupils are equal, round, and reactive to light. Cardiovascular: Rate and Rhythm: Normal rate and regular rhythm. Heart sounds: S1 normal and S2 normal. No murmur heard. No friction rub. No gallop. Pulmonary: Effort: Pulmonary effort is normal. No tachypnea. Breath sounds: Normal breath sounds. No stridor or decreased air movement. No wheezing, rhonchi or rales. Neurological: Mental Status: She is alert. Gait: Gait is intact. Psychiatric: Behavior: Behavior is cooperative. Assessment/Plan: Diagnoses and all orders for this visit: General medical exam - Basic Metabolic Panel; Future - CBC and Differential; Future - Hemoglobin A1c; Future - Hepatic Function Panel; Future - Lipid Panel; Future - TSH; Future Environmental allergies Discussed with patient most likely her symptoms are coming from allergies she is going to follow-upin the fall we will discuss preventive medications Maritza Carrera M.D. For any new medications prescribed today, patient was educated about indications for the medication, how to take the medication and potential side effects of the medications. [facility] No data available for this section [facility] + Plan note Future Appointments [facility] Evaluation note* Diagnosis General medical exam- Primary Unspecified general medical examination Environmental allergies Other allergy, other than to medicinal agents [facility] Diagnosis Generalized anxiety disorder- Primary [facility]* Diagnosis General medical exam- Primary Unspecified general medical examination Iron deficiency anemia due to chronic blood loss Iron deficiency anemia secondary to blood loss (chronic) Essential (primary) hypertension Unspecified essential hypertension Dyspepsia Dyspepsia and other specified disorders of function of stomach Abnormal uterine bleeding Unspecified disorder of menstruation and other abnormal bleeding from female genital tract [facility]* Diagnosis Essential (primary) hypertension- Primary Unspecified essential hypertension [facility] information [facility]Olymp[facility] Work Phone: Hospital Discharge instructions No data available for this section [facility] Progress note No data available for this section [facility] Reason for referral (narrative)No reason for referral information availableBlKaiser Foundation [facility] Work Phone: Summary Purpose Family History No Family History Records Found Relationship Condition Age at Onset Recorded Date/T elaine grandmother Diabetes mellitus Unknown grandfather Cardiac disease Unknown Diabetes mellitus Unknown Advance Directives No Advanced Directives Records FoundNo Advanced Directives Records FoundNo Advanced Directives Records FoundNo Advanced Directives Records FoundNo Advanced Directives Records FoundNo Advanced Directives Records FoundNo Advanced Directives Records FoundNo Advanced Directives Records FoundNo Advanced Directives Records FoundNo Advanced Directives Records FoundNo Advanced Directives Records FoundNo Advanced Directives Records FoundNo Advanced Directives Records Found Chief Complaint and Reason for Visit Chief Complaint Admit Date SORE THROAT, EAR PAIN October 29, 2024 8:02am Additional Source Comments INFORMATION SOURCE (unrecogn ized section and content) DATE CREATED AUTHOR 09/14/2017 [facility] DATE CREATED AUTHOR AUTHOR'S ORGANIZ ATION 10/12/2019 [facility] DATE CREATED AUTHOR AUTHOR'S ORGANIZ ATION 10/13/2019 [employer] DATE CREATED AUTHOR AUTHOR'S ORGANIZ ATION 10/13/2019 [facility] DATE CREATED AUTHOR AUTHOR'S ORGANIZ ATION 01/10/2022 Magen Landon [facility] DATE CREATED AUTHOR AUTHOR'S ORGANIZ ATION 03/15/2022 [facility] DATE CREATED AUTHOR AUTHOR'S ORGANIZ ATION 05/26/2022 [facility] DATE CREATED AUTHOR AUTHOR'S ORGANIZ ATION 10/13/2023 [facility] DATE CREATED AUTHOR AUTHOR'S ORGANIZ ATION 05/04/2024 [facility] DATE CREATED AUTHOR AUTHOR'S ORGANIZ ATION 06/18/2024 [facility] DATE CREATED AUTHOR AUTHOR'S ORGANIZ ATION 06/22/2024 [facility] DATE CREATED AUTHOR AUTHOR'S ORGANIZ ATION 09/21/2024 [facility] DATE CREATED AUTHOR AUTHOR'S ORGANIZ ATION 10/29/[address] [facility] Reason for Visit (unrecogniz ed section and content) Reason Comments Establish Care Reason Onset Date Comments Care Coordination - [facility] 08/19/2022 Reason Comments Follow-up 4 week f/u Reason Comments Annual Exam y Reason Comments Follow-up 6 month f/u- no conc erns Care Teams (unrecognized sec tion and content) [employer] General Supervisor Relationship Specialty Start Date End Date Maritza Carrera MD [address] [phone] PCP - General Family Medicine 05/28/22 No, Physician [facility] 03/14/22 [employer] General Supervisor Relationship Specialty Start Date End Date Maritza Carrera MD [address] [phone] PCP - General Family Medicine 05/28/22 No, Physician [facility] 03/14/22 [employer] General Supervisor Relationship Specialty Start Date End Date Maritza Carrera MD [address] [id number] PCP - General Family Medicine 05/28/22 No, Physician [facility] 03/14/22 [employer] General Supervisor Relationship Specialty Start Date End Date Maritza Carrera MD [address] [id number] PCP - General Family Medicine 05/28/22 No, Physician [facility] 03/14/22 [employer] General Supervisor Relationship Specialty Start Date End Date Maritza Carrera MD [address] [phone] PCP - General Family Medicine 05/28/22 No, Physician [facility] 03/14/22 Nadya Mendez, СВЕТЛАНА [address] [place] [address] Nurse Practitioner Nurse Practitioner 03/11/23 Denisse Lan, СВЕТЛАНА [address] [place] [address] Nurse Practitioner Obstetrics/Gynecology 08/22/23 Mimi Garcia, booth operatorRoll Up Machine Operator 09/28/23 [employer] General Supervisor Relationship Specialty Start Date End Date Maritza Carrera MD [facility] [phone] PCP - General Family Medicine 05/28/22 No, Physician [facility] 03/14/22 Nadya Mendez, СВЕТЛАНА [address] [place] [address] Nurse Practitioner Nurse Practitioner 03/11/23 Denisse Lan, СВЕТЛАНА [address] [place] [address] Nurse Practitioner Obstetrics/Gynecology 08/22/23 [employer] General Supervisor Relationship Specialty Start Date End Date Maritza Carrera MD [address] [phone] PCP - General Family Medicine 05/28/22 No, Physician [facility] 03/14/22 Nadya Mendez, СВЕТЛАНА [address] [place] [address] Nurse Practitioner Nurse Practitioner 03/11/23 Denisse Lan, СВЕТЛАНА [address] [place] [address] Nurse Practitioner Obstetrics/Gynecology 08/22/23 Team Status: Active Member Role/Relationship Status Dates Dr. Leo Swenson MD Family Provider Active Dr. Froylan Fischer MD Primary Care Provider Active Team Status: Inactive Member Role/Relationship Status Dates Dr. Froylan Fischer MD Primary Care Provider Active Start: October 29, 2024 End: October 29, 2024 Dr. Froylan Fischer MD Referring Provider Active Start: October 29, 2024 End: October 29, 2024 Jos FLYNN, PA Attending Provider Active Start: October 29, 2024 End: October 29, 2024 Goals (unrecognized section and content) Goals may be documented in a n alternate section FOR RECORDS PERTAINING TO PATIENTS WHO ARE OR HAVE BEEN ENROLLED IN A CHEMICAL DEPENDENCY/SUBSTANCEABUSE PROGRAM, SOME INFORMATION MAY BE OMITTED. This clinical summary was aggregated from multiple sources. Caution should be exercised in using it in the provision of clinical care. This summary normalizes information from multiple sources, and as a consequence, information in this document may materially change the coding, format and clinical context of patient data. In addition, data may be omitted in some cases. CLINICAL DECISIONS SHOULD BE BASED ON THE PRIMARY CLINICAL RECORDS. [employer] [facility]. provides no warranty or guarantee of the accuracy or completeness of information in this document.
[2024-11-13 01:43] VITALS: BP 133/73; PULSE 122; RESP 16; TEMP 38.8; O2SAT 94
[2024-11-13 01:46] VITALS: PULSE 122
== END 2024-11-13 01:47 | disposition home or self-care (01) ==
PROVIDERS: Emergency Provider Emergency Medicine; Visit Provider Emergency Medicine
DX: U07.1 COVID-19 (principal); J06.9 Acute upper respiratory infection, unspecified; E03.9 Hypothyroidism, unspecified; Z79.890 Hormone replacement therapy
CPT/HCPCS: 87631; 87651; 99283